=== PATIENT | male | born 1975 | race Caucasian/White ===

== ENCOUNTER 2019-12-28 14:20 | Emergency (ER) | payer BC ==
[2019-12-28] MEDS ORDERED: Dicyclomine 10 MG Cap PO ONE (14:35)
[2019-12-28] MEDS ORDERED: Sodium Chloride 0.9% 2.5 ML Syringe FLUSH PRN ×2 (14:35)
[2019-12-28] MEDS ORDERED: Ondansetron 4 MG/2 ML SDV IVPUSH ONE (14:35)
[2019-12-28] MEDS ORDERED: Famotidine 20 MG/2 ML SDV IVPUSH ONE (14:35)
[2019-12-28] MEDS ORDERED: Sodium Chloride 0.9% 1,000 ML IV ONE (14:35)
[2019-12-28] MEDS ORDERED: Sodium Chloride 0.9% 10 ML Syringe FLUSH PRN (14:35)
--- NOTE | 2019-12-28 14:41 | EDM.PDOC ---
ED HPI GENERAL MEDICAL PROBLEM - General Chief Complaint: Abdominal Pain Stated Complaint: GALLBLADDER ATTACK Time Seen by Provider: 12/28/19 14:33 - History of Present Illness INITIAL COMMENTS - FREE TEXT/NARRATIVE: History of present illness: [] Patient presents with 2 days of right upper quadrant abdominal pain that radiates to his back no nausea no vomiting no fever no chills no diarrhea no dysuria nothing seems to make it better or worse. Believes this might be his gallbladder. No prior surgeries no other medical problems no allergies. Review of systems: As per history of present illness and below otherwise all systems reviewed and negative. Past medical history: As per history of present illness and as reviewed below otherwise noncontributory. Surgical history: As per history of present illness and as reviewed below otherwise noncontributory. Social history: No reported history of drug or alcohol abuse. Family history: As per history of present illness and as reviewed below otherwise noncontributo ry. Physical exam: HEENT: Atraumatic, normocephalic, pupils reactive, negative for conjunctival pallor or scleral icterus, mucous membranes moist, throat clear, neck supple, nontender, trachea midline. Lungs: Clear to auscultation, breath sounds equal bilaterally, chest nontender. Heart: S1S2, regular, negative for clicks, rubs, or JVD. Abdomen: Soft, nondistended, mild tenderness in the right upper quadrant negative Novak sign. Negative for masses or hepatosplenomegaly. Negative for costovertebral tenderness. Pelvis: Stable nontender. Genitourinary: Deferred. Rectal: Deferred. Extremities: Atraumatic, negative for cords or calf pain. Neurovascular unremarkable. Neuro: Awake, alert, oriented. Cranial nerves II through XII unremarkable. Cerebellum unremarkable. Motor and sensory unremarkable throughout. Exam nonfocal. Diagnostics: [] Therapeutics: [] Impression: [] Plan: Medicate lab studies reevaluate [] Definitive disposition and diagnosis as appropriate pending reevaluation and review of above. URQ/right flank Pain Score (Numeric/FACES): 8 - Related Data Allergies Allergy/AdvReac Type Severity Reaction Status Date / Time No Known Allergies Allergy Verified 06/27/14 13:41 Home Meds: Home Meds Dicyclomine [Bentyl] 20 mg PO QIDACANDBED #30 tab 12/28/19 [Rx] Omeprazole Magnesium [Prilosec Otc] 20 mg PO ASDIRECTED 12/28/19 [History] Past Medical History HEENT History: Reports: None Cardiovascular History: Reports: None Respiratory History: Reports: None Gastrointestinal History: Reports: None Genitourinary History: Reports: None Musculoskeletal History: Reports: None Neurological History: Reports: None Psychiatric History: Reports: Anxiety, Depression, Panic Attack, PTSD Endocrine/Metabolic History: Reports: None Hematologic History: Reports: None Immunologic History: Reports: None Oncologic (Cancer) History: Reports: None Dermatologic History: Reports: None - Infectious Disease History Infectious Disease History: Reports: Chicken Pox Social & Family History - Family History Family Medical History: Noncontributory - Tobacco Use Smoking Status *Q: Former Smoker Used Tobacco, but Quit: Yes Month/Year Tobacco Last Used: 2016 - Recreational Drug Use Recreational Drug Use: No ED ROS GENERAL - Review of Systems Review Of Systems: See Below ED EXAM, GENERAL - Physical Exam Exam: See Below Course - Vital Signs Text/Narrative:: Patient's pain is better in the ED lab studies are unremarkable discharge home recommend follow-up with general surgery and Metamucil daily return to the ED for severe pain. Last Recorded V/S: Last Vital Signs Temp 35.9 C L 12/28/19 15:56 Pulse 82 12/28/19 15:56 Resp 18 12/28/19 15:56 BP 136/79 12/28/19 15:56 Pulse Ox 96 12/28/19 15:56 - Orders/Labs/Meds Orders: Active Orders 24 hr Category Date Time Status Saline Lock Insert [OM.PC] Stat Oth 12/28/19 14:35 Ordered Labs: Laboratory Tests 12/28/19 12/28/19 Range/Units 14:30 14:30 WBC 9.36 (4.0-11.0) K/uL RBC 4.97 (4.50-5.90) M/uL Hgb 16.6 (13.0-17.0) g/dL Hct 46.5 (38.0-50.0) % MCV 93.6 (80.0-98.0) fL MCH 33.4 H (27.0-32.0) pg MCHC 35.7 (31.0-37.0) g/dL RDW Std Deviation 45.4 (28.0-62.0) fl RDW Coeff of Yuval 13 (11.0-15.0) % Plt Count 241 (150-400) K/uL MPV 9.90 (7.40-12.00) fL Neut % (Auto) 56.4 (48.0-80.0) % Lymph % (Auto) 33.4 (16.0-40.0) % Moffat % (Auto) 6.2 (0.0-15.0) % Eos % (Auto) 3.5 (0.0-7.0) % Baso % (Auto) 0.5 (0.0-1.5) % Neut # (Auto) 5.3 (1.4-5.7) K/uL Lymph # (Auto) 3.1 H (0.6-2.4) K/uL Moffat # (Auto) 0.6 (0.0-0.8) K/uL Eos # (Auto) 0.3 (0.0-0.7) K/uL Baso # (Auto) 0.1 (0.0-0.1) K/uL Nucleated RBC % 0.0 /100WBC Nucleated RBCs # 0 K/uL Sodium 141 (136-148) mmol/L Potassium 3.8 (3.5-5.1) mmol/L Chloride 104 (98-107) mmol/L Carbon Dioxide 28.7 (21.0-32.0) mmol/L BUN 9 (7.0-18.0) mg/dL Creatinine 1.3 (0.8-1.3) mg/dL Est Cr Clr Drug Dosing 71.00 mL/min Estimated GFR (MDRD) 59.4 ml/min Glucose 107 H (74-106) mg/dL Calcium 9.2 (8.5-10.1) mg/dL Total Bilirubin 0.9 (0.2-1.0) mg/dL AST 29 (15-37) IU/L ALT 29 (14-63) IU/L Alkaline Phosphatase 79 (46-116) U/L Total Protein 7.2 (6.4-8.2) g/dL Albumin 4.3 (3.4-5.0) g/dL Globulin 2.9 (2.6-4.0) g/dL Albumin/Globulin Ratio 1.5 (0.9-1.6) Lipase 140 (73-393) U/L Meds: Medications Discontinued Medications Generic Name Dose Route Start Last Admin Trade Name Freq PRN Reason Stop Dose Admin Dicyclomine HCl 20 mg 12/28/19 14:35 12/28/19 14:59 Bentyl PO 12/28/19 14:36 20 mg ONETIME ONE Administration Famotidine 20 mg 12/28/19 14:35 12/28/19 14:59 Pepcid IVPUSH 12/28/19 14:36 20 mg ONETIME ONE Administration Sodium Chloride 1,000 mls @ 999 mls/hr 12/28/19 14:35 12/28/19 15:00 Normal Saline IV 12/28/19 15:35 999 mls/hr BOLUS ONE Administration Ondansetron HCl 4 mg 12/28/19 14:35 12/28/19 14:59 Zofran IVPUSH 12/28/19 14:36 4 mg ONETIME ONE Administration Sodium Chloride 2.5 ml 12/28/19 14:35 12/28/19 14:58 Saline Flush FLUSH 2.5 ml ASDIRECTED PRN Administration Keep Vein Open Sodium Chloride 10 ml 12/28/19 14:35 12/28/19 14:58 Saline Flush FLUSH 10 ml ASDIRECTED PRN Administration Keep Vein Open Sodium Chloride 2.5 ml 12/28/19 14:35 Saline Flush FLUSH ASDIRECTED PRN Keep Vein Open Departure - Departure Time of Disposition: 16:11 Disposition: Home, Self-Care 01 Condition: Good Clinical Impression: Abdominal pain Qualifiers: Abdominal location: upper abdomen, unspecified Qualified Code(s): R10.10 - Upper abdominal pain, unspecified - Discharge Information *PRESCRIPTION DRUG MONITORING PROGRAM REVIEWED*: Not Applicable *COPY OF PRESCRIPTION DRUG MONITORING REPORT IN PATIENT CAROLYN: Not Applicable Prescriptions: Dicyclomine [Bentyl] 20 mg PO QIDACANDBED #30 tab Referrals: Bentley Pena MD [Primary Care Provider] - Forms: ED Department Discharge Additional Instructions: The following information is given to patients seen in the emergency department who are being discharged to home. This information is to outline your options for follow-up care. We provide all patients seen in our emergency department with a follow-up referral. The need for follow-up, as well as the timing and circumstances, are variable depending upon the specifics of your emergency department visit. If you don't have a primary care physician on staff, we will provide you with a referral. We always advise you to contact your personal physician following an emergency department visit to inform them of the circumstance of the visit and for follow-up with them and/or the need for any referrals to a consulting specialist. The emergency department will also refer you to a specialist when appropriate. This referral assures that you have the opportunity for follow-up care with a specialist. All of these measure are taken in an effort to provide you with optimal care, which includes your follow-up. Under all circumstances we always encourage you to contact your private physician who remains a resource for coordinating your care. When calling for follow-up care, please make the office aware that this follow-up is from your recent emergency room visit. If for any reason you are refused follow-up, please contact the [facility] Emergency Department at and asked to speak to the emergency department charge nurse. Sepsis Event Note (ED) - Evaluation Sepsis Screening Result: No Definite Risk - Focused Exam Vital Signs: Vital Signs Temp Pulse Resp BP Pulse Ox 12/28/19 15:56 35.9 C L 82 18 136/79 96 12/28/19 14:26 35.8 C L 98 18 139/83 98 - My Orders Last 24 Hours: My Active Orders 12/28/19 14:35 Saline Lock Insert [OM.PC] Stat - Assessment/Plan Last 24 Hours: My Active Orders 12/28/19 14:35 Saline Lock Insert [OM.PC] Stat
[2019-12-28 15:05] LABS: CARBON DIOXIDE,CO2 28.7 mmol/L (21.0-32.0); POTASSIUM,K 3.8 mmol/L (3.5-5.1)
== END 2019-12-28 16:30 | disposition home or self-care (01) ==
LOC: MW.ED 14:20
DX: R10.11 Right upper quadrant pain (principal); Z87.891 Personal history of nicotine dependence
CPT/HCPCS: 36415; 80053; 83690; 85025; 96374; 96375; 99284; A9270; J2405; J7030; S0028; 99283; J3490

== ENCOUNTER 2020-01-10 06:28 | Day surgery (SDC) | payer BC ==
[~2020-01-10 06:28] MED LIST: Lactated Ringers 1,000 ML IV SCH
[2020-01-10] MEDS ORDERED: Midazolam 1 MG/ML 2 ML SDV ONE (07:00)
[2020-01-10] MEDS ORDERED: Propofol 200 MG/20 ML SDV ONE (07:00)
[2020-01-10] MEDS ORDERED: Lidocaine 2% 5 ML SDV ONE (07:02)
[2020-01-10] MEDS ORDERED: Glycopyrrolate 0.2 MG/ML SDV ONE (07:02)
--- NOTE | 2020-01-10 07:25 | PCM.PREANE ---
Preanesthetic Assessment - Anesthesia/Transfusion/Family Hx Anesthesia History: No Prior Anesthesia Family History of Anesthesia Reaction: No Transfusion History: No Prior Transfusion(s) Intubation History: Unknown - Review of Systems General: No Symptoms Pulmonary: No Symptoms Cardiovascular: No Symptoms Gastrointestinal: Abdominal Pain Neurological: No Symptoms Other: Reports: None - Physical Assessment NPO Status Date: 01/10/20 NPO Status Time: 06:00 Vital Signs: Last Vital Signs Temp 35.8 C L 01/10/20 06:40 Pulse 58 L 01/10/20 06:40 Resp 16 01/10/20 06:40 BP 131/76 01/10/20 06:40 Pulse Ox 96 01/10/20 06:40 Height: 5 ft 9 in Weight: 112.945 kg ASA Class: 2 Mental Status: Alert & Oriented x3 Airway Class: Mallampati = 2 Dentition: Reports: Normal Dentition Thyro-Mental Finger Breadths: 3 Mouth Opening Finger Breadths: 3 ROM/Head Extension: Full Lungs: Clear to Auscultation, Normal Respiratory Effort Cardiovascular: Regular Rate, Regular Rhythm - Allergies Allergies/Adverse Reactions: Allergies Allergy/AdvReac Type Severity Reaction Status Date / Time No Known Allergies Allergy Verified 01/05/20 09:02 - Blood Blood Available: No - Anesthesia Plan Pre-Op Medication Ordered: None - Acknowledgements Anesthesia Type Planned: MAC Pt an Appropriate Candidate for the Planned Anesthesia: Yes Alternatives and Risks of Anesthesia Discussed w Pt/Guardian: Yes Pt/Guardian Understands and Agrees with Anesthesia Plan: Yes PreAnesthesia Questionnaire HEENT History: Reports: None Cardiovascular History: Reports: None Respiratory History: Reports: None Other Respiratory History: allergy induced asthma as a teenager, uses CPAP Gastrointestinal History: Reports: GERD Other Gastrointestinal History: intermittent epigastric pain, h/o gastric ulcer, ultrasound 12/30 - fatty liver infiltration Genitourinary History: Reports: None Musculoskeletal History: Reports: Arthritis (elbows and shoulders) Other Musculoskeletal History: intermittent sciatic nerve pain Neurological History: Reports: None Psychiatric History: Reports: Anxiety, Depression, Panic Attack, PTSD Endocrine/Metabolic History: Reports: Obesity/BMI 30+ (BMI 36.8) Hematologic History: Reports: None Immunologic History: Reports: None Oncologic (Cancer) History: Reports: None Dermatologic History: Reports: None - Infectious Disease History Infectious Disease History: Reports: Chicken Pox - Past Surgical History Head Surgeries/Procedures: Reports: None HEENT Surgical History: Reports: None Cardiovascular Surgical History: Reports: None Respiratory Surgical History: Reports: None GI Surgical History: Reports: EGD (15-16 years ago in [facility]) Male Surgical History: Reports: None Endocrine Surgical History: Reports: None Neurological Surgical History: Reports: None Musculoskeletal Surgical History: Reports: None Oncologic Surgical History: Reports: None Dermatological Surgical History: Reports: None - SUBSTANCE USE Smoking Status *Q: Former Smoker (quit 3 years ago) Tobacco Use Within Last Twelve Months: No - HOME MEDS Home Medications: Home Meds Omeprazole Magnesium [Prilosec Otc] 20 mg PO ASDIRECTED PRN 12/28/19 [History] Diclofenac Potassium [Cataflam] 50 mg PO ASDIRECTED PRN 01/05/20 [History] Zyn 3 mg SL ASDIRECTED PRN 01/05/20 [History] - CURRENT (IN HOUSE) MEDS Current Meds: Current Medications Lactated Ringer's (Ringers, Lactated) 1,000 mls @ 125 mls/hr IV ASDIRECTED SHARMAINE Last Admin: 01/10/20 06:52 Dose: 125 mls/hr Documented by: Discontinued Medications Glycopyrrolate (Robinul) Confirm Administered Dose 0.2 mg .ROUTE .STK-MED ONE Stop: 01/10/20 07:03 Lidocaine (Xylocaine-Mpf 2%) Confirm Administered Dose 5 ml .ROUTE .STK-MED ONE Stop: 01/10/20 07:03 Midazolam HCl (Versed 1 Mg/Ml) Confirm Administered Dose 2 mg .ROUTE .STK-MED ONE Stop: 01/10/20 07:01 Propofol (Diprivan 20 Ml) Confirm Administered Dose 200 mg .ROUTE .STK-MED ONE Stop: 01/10/20 07:01
--- NOTE | 2020-01-10 08:40 | PCM.OPNOTE ---
- General Post-Op/Procedure Note Date of Surgery/Procedure: 01/10/20 Operative Procedure(s): EGD w/ gastric and esophageal biopsies Pre Op Diagnosis: Right upper quadrant and epigastric pain Post-Op Diagnosis: Acute and chronic gastritis. Esophagitis. Anesthesia Technique: MAC (ASA II) Primary Surgeon: Nathan Thompson Condition: Good Free Text/Narrative:: Intake & Output 01/09/20 01/10/20 01/10/20 19:59 03:59 11:59 Intake Total 900 Balance 900 DICTATION [id number] CPT CODE 22722
[2020-01-10] MEDS ORDERED: Lactated Ringers 1,000 ML IV SCH (08:45)
--- NOTE | 2020-01-10 09:34 | PCM.POSTAN ---
POST ANESTHESIA ASSESSMENT - MENTAL STATUS Mental Status: Alert, Oriented - VITAL SIGNS Vital Signs: Last Vital Signs Temp 35.8 C L 01/10/20 08:35 Pulse 52 L 01/10/20 09:15 Resp 14 01/10/20 09:15 BP 137/74 01/10/20 09:15 Pulse Ox 98 01/10/20 09:15 - RESPIRATORY Respiratory Status: Respiratory Rate WNL, Airway Patent, O2 Saturation Stable - CARDIOVASCULAR CV Status: Pulse Rate WNL, Blood Pressure Stable - GASTROINTESTINAL GI Status: No Symptoms - PAIN Pain Score: 0 - POST OP HYDRATION Hydration Status: Adequate & Stable - OBSERVATIONS Free Text/Narrative:: No anesthesia problems
--- NOTE | 2020-01-10 09:37 | PCM48HPAN ---
Post Anesthesia Note - EVALUATION WITHIN 48HRS OF ANESTHETIC Vital Signs in Normal Range: Yes Patient Participated in Evaluation: Yes Respiratory Function Stable: Yes Airway Patent: Yes Cardiovascular Function Stable: Yes Hydration Status Stable: Yes Pain Control Satisfactory: Yes Nausea and Vomiting Control Satisfactory: Yes Mental Status Recovered: Yes Vital Signs: Last Vital Signs Temp 35.8 C L 01/10/20 08:35 Pulse 52 L 01/10/20 09:15 Resp 14 01/10/20 09:15 BP 137/74 01/10/20 09:15 Pulse Ox 98 01/10/20 09:15 - COMMENTS/OBSERVATIONS Free Text/Narrative:: No anesthesia problems
--- NOTE | 2020-01-10 17:46 | OR ---
SURGEON: Nathan Thompson M.D. DATE OF PROCEDURE: 01/10/2020 OPERATION PERFORMED: Esophagogastroduodenoscopy with gastric and esophageal biopsy. PRIMARY SURGEON: Nathan Thompson MD ANESTHESIA: MAC. ASA CLASSIFICATION: II. PREOPERATIVE DIAGNOSIS: Persistent right upper quadrant and epigastric pain with acid reflux. POSTOPERATIVE DIAGNOSES: 1. Moderate acute and chronic gastritis. 2. Distal esophagitis. DESCRIPTION OF PROCEDURE: The patient was taken to the endoscopy room and positioned on the endoscopy table in the supine position. Time-out was called for appropriate identification of the patient and procedure. Monitored anesthesia care was provided. The bite block was placed between the patient's teeth. The gastroscope was inserted through the bite block into the oropharynx and advanced without difficulty through the esophagus and stomach into the duodenum. Examination was now carried out in a retrograde fashion. The duodenum showed no acute inflammatory changes or ulcerations. The stomach did show mild to moderate acute and chronic gastritis. Antral biopsies were obtained to look for the presence of Helicobacter pylori. The gastroscope was retroflexed to visualize the proximal stomach. No tumors, polyps, or ulcerations were noted. The gastroscope was then straightened and slowly withdrawn, carefully visualizing the greater and lesser curvatures. Again, no acute inflammatory processes are noted. The GE junction was well defined. The distal esophagus did show an acute inflammatory process and separate biopsies of this area were taken. There did not appear to be any significant columnarization in the distal esophagus. The mid and proximal esophagus demonstrated good contractility with no lesions. The vocal cords were not visualized as the scope was withdrawn. The gastroscope was then removed with the patient having tolerated the procedure well. He was taken to recovery room in stable condition. CC: Bentley Pena MD [facility] [address] [place] [id number] ANDE[place]ON / MODL /[id number]
== END 2020-01-10 09:40 | disposition home or self-care (01) ==
LOC: MW.SDS 06:28
PROVIDERS: ATTEND Surgery
DX: K29.50 Unspecified chronic gastritis without bleeding (principal); K29.00 Acute gastritis without bleeding; K21.9 Gastro-esophageal reflux disease without esophagitis; F41.9 Anxiety disorder, unspecified; F32.9 Major depressive disorder, single episode, unspecified; M19.90 Unspecified osteoarthritis, unspecified site; J45.909 Unspecified asthma, uncomplicated; E66.9 Obesity, unspecified; Z79.899 Other long term (current) drug therapy; Z87.891 Personal history of nicotine dependence; Z68.36 Body mass index [BMI] 36.0-36.9, adult
CPT/HCPCS: 00731; 88305; 88312; J2001; J2250; J2704; J3490; J7120

== ENCOUNTER 2020-08-22 17:09 | Emergency (ER) | payer BC ==
[2020-08-22] MEDS ORDERED: Sodium Chloride 0.9% 10 ML Syringe FLUSH PRN (17:21)
[2020-08-22] MEDS ORDERED: Sodium Chloride 0.9% 2.5 ML Syringe FLUSH PRN (17:21)
[2020-08-22] MEDS ORDERED: LORazepam 2 MG/ML SDV IVPUSH ONE (17:22)
--- NOTE | 2020-08-22 17:29 | EDM.PDOC ---
<Emery Holman - Last Filed: 08/22/20 18:49> ED HPI GENERAL MEDICAL PROBLEM - General Chief Complaint: Chest Pain Stated Complaint: HEART ISSUES Time Seen by Provider: 08/22/20 17:20 - History of Present Illness INITIAL COMMENTS - FREE TEXT/NARRATIVE: 45-year-old male with a history of panic attacks and PTSD is having trouble trouble with more frequent panic attacks in the months and years ago on. He has no history of hypertension no history of ACS no history of cardiac disease [facility] He has been keeping a log of these episodes and has been unable to find a clear trigger thus far. Patient was doing well today he reports that he was in a good mood did various activities including taking the dogs to the [place] and letting them run. He got home he was sitting watching TV and had sudden onset 6 out of 10 substernal chest pain associated with shortness of breath. This is similar to multiple past panic episodes. He says that he can normally breathe himself through it but was unable to do so at this time. 911 was called. No exacerbating or alleviating factors no radiation or other associated symptoms no lower extremity pain or swelling. Former smoker but not a current smoker. He states that typically after these episodes he feels very tired. chest Pain Score (Numeric/FACES): 4 - Related Data Allergies Allergy/AdvReac Type Severity Reaction Status Date / Time No Known Allergies Allergy Verified 08/22/20 17:10 Home Meds: Home Meds . [No Known Home Meds] 08/22/20 [History] Past Medical History - Past Health History Medical/Surgical History: Denies Medical/Surgical History HEENT History: Reports: None Cardiovascular History: Reports: None Respiratory History: Reports: Sleep Apnea Other Respiratory History: allergy induced asthma as a teenager, uses CPAP Gastrointestinal History: Reports: GERD Other Gastrointestinal History: intermittent epigastric pain, h/o gastric ulcer, ultrasound 12/30 - fatty liver infiltration Genitourinary History: Reports: None Musculoskeletal History: Reports: Arthritis Other Musculoskeletal History: intermittent sciatic nerve pain Neurological History: Reports: None Psychiatric History: Reports: Anxiety, Depression, Panic Attack, PTSD Endocrine/Metabolic History: Reports: Obesity/BMI 30+ Hematologic History: Reports: None Immunologic History: Reports: None Oncologic (Cancer) History: Reports: None Dermatologic History: Reports: None - Infectious Disease History Infectious Disease History: Reports: Chicken Pox - Past Surgical History Head Surgeries/Procedures: Reports: None HEENT Surgical History: Reports: None Cardiovascular Surgical History: Reports: None Respiratory Surgical History: Reports: None GI Surgical History: Reports: EGD Male Surgical History: Reports: None Endocrine Surgical History: Reports: None Neurological Surgical History: Reports: None Musculoskeletal Surgical History: Reports: None Oncologic Surgical History: Reports: None Dermatological Surgical History: Reports: None Social & Family History - Family History Family Medical History: No Pertinent Family History - Tobacco Use Tobacco Use Status *Q: Former Tobacco User Used Tobacco, but Quit: Yes Month/Year Tobacco Last Used: unknown - Recreational Drug Use Recreational Drug Use: No ED ROS GENERAL - Review of Systems Review Of Systems: See Below Free Text/Narrative/Comment: General: No fever. Skin: No rash. Eyes: No vision problems. ENT: No sore throat. Neck: No neck stiffness. Respiratory: Per HPI Cardiac: Per HPI Gastrointestinal: No nausea, vomiting or abdominal pain. Urinary: No dysuria. Musculoskeletal: No myalgias/arthralgias. Neurologic: No headache. ED EXAM, GENERAL - Physical Exam Exam: See Below Free Text/Narrative:: General Appearance: No acute distress, appears comfortable HEENT: Normocephalic/atraumatic, sclera anicteric, mucous membranes moist Neck: Normal range of motion Chest and Lungs: Bilateral breath sounds, clear to auscultation Cardiovascular: Regular rate and rhythm, no murmur Abdomen: Soft, non-tender Back: Normal Musculoskeletal: No edema or tenderness Neurologic: Awake, alert, no obvious deficits, moving all extremities Psychiatric: Anxious, cooperative #1 Interpretation EKG Date: 08/22/20 Time: 17:21 EKG Interpretation Comments: Normal sinus rhythm rate of 78 normal intervals and axis no acute ischemia minimal benign early repole pattern Departure - Departure Disposition: Home, Self-Care 01 Clinical Impression: Panic attack - Discharge Information Instructions: Panic Attack, [id number], Nonspecific Chest Pain, Adult, [id number] Referrals: Bentley Pena MD [Primary Care Provider] - Forms: ED Department Discharge Additional Instructions: You evaluate today on an emergent basis. At this time I do believe your symptoms were likely secondary to your PTSD, anxiety, and panic attacks. Your work-up was normal at this time. As discussed continue with your breathing exercises and I did recommend an jeovany called KeraFAST. Please follow-up with your [facility] physician for continued monitoring and treatment. If you have any new or worsening symptoms such as worsening chest pain, passing out, or shortness of breath please return to the emergency department. Thank you for your service. We appreciate you and all your fellow veterans. [facility] [address] [place] [id number] [facility] [address] [place] [id number] The patient is informed of any results of their evaluation and diagnostic workup and all questions are answered. They are given discharge instructions and return precautions. The patient is stable for discharge. The patient states they understand and agree with the plan and that they will return if their symptoms get worse or if they have any new concerns. The following information is given to patients seen in the emergency department who are being discharged to home. This information is to outline your options for follow-up care. We provide all patients seen in our emergency department with a follow-up referral. The need for follow-up, as well as the timing and circumstances, are variable depending upon the specifics of your emergency department visit. If you don't have a primary care physician on staff, we will provide you with a referral. We always advise you to contact your personal physician following an emergency department visit to inform them of the circumstance of the visit and for follow-up with them and/or the need for any referrals to a consulting specialist. The emergency department will also refer you to a specialist when appropriate. This referral assures that you have the opportunity for follow-up care with a specialist. All of these measure are taken in an effort to provide you with optimal care, which includes your follow-up. Under all circumstances we always encourage you to contact your private physician who remains a resource for coordinating your care. When calling for follow-up care, please make the office aware that this follow-up is from your recent emergency room visit. If for any reason you are refused follow-up, please contact the Emergency Department at and asked to speak to the emergency department charge nurse. Sepsis Event Note (ED) - Evaluation Sepsis Screening Result: No Definite Risk - Assessment/Plan Assessment:: 45-year-old male with nonischemic EKG presenting with signs and symptoms that are most consistent with panic episode but other etiologies considered as well. Heart score will be calculated anticipate patient to be low risk. No tachycardia or hypoxia or pleuritic component that would suggest PE. Aortic dissection considered the patient without history of hypertension the pain is not tearing make it is unlikely to be aortic dissection given the overall clinical picture. Would not further pursue unless abnormal mediastinal silhouette. Was planning to give the patient 1 mg of Ativan after extensive discussion. However patient now seems to be entering a more fatigued and sleepy state which is reportedly typical after these episodes. He arouses easily to voice. 1840: Patient symptoms are starting to run a typical course he now has a mild left chest ache. He states this is typical of these episodes. His initial blood work is normal his chest x-ray read is still pending. We discussed that if he is still symptomatic at the 2-hour lolly we could consider delta troponin. However his heart score is low. We discussed the potential for urine metanephrine testing for pheochromocytoma which could be pursued as an outpatient by his primary care provider. I think on balance panic attack is much more likely and we discussed this. Repeat trop is due at 0730 <Efren Cedillo - Last Filed: 08/23/20 06:26> ED HPI GENERAL MEDICAL PROBLEM - History of Present Illness INITIAL COMMENTS - FREE TEXT/NARRATIVE: Patient was signed out to me by Dr. Holman pending reevaluation at 7PM I did reevaluate the patient and patient stated that his symptoms had completely resolved. Labs reviewed CBC was normal. CMP unremarkable. Troponin is negative. Imaging reviewed chest x-ray did not reveal any acute cardiopulmonary process. Given the patient's symptoms had completely resolved. I do believe this is secondary to his anxiety and panic attack. I did offer a repeat troponin however at this time he does believe it secondary to his anxiety, PTSD and prior history of panic attacks. I encouraged the patient to follow-up with his [facility] physician for continued management of his PTSD and anxiety. He was amenable discharge at this time and had no further questions. He is to return for any new or worsening symptoms DISPOSITION: The patient was discharged home in stable condition. The patient will follow up with [place] physician within 2 to 3 days CONDITION: Fair PROCEDURES: None FINAL IMPRESSION(S)/DIAGNOSES: 1. Acute panic attack Efren Cedillo M.D. Course - Vital Signs Last Recorded V/S: Last Vital Signs Temp 36.8 C 08/22/20 20:05 Pulse 66 08/22/20 20:05 Resp 18 08/22/20 20:05 BP 110/60 08/22/20 20:05 Pulse Ox 97 08/22/20 20:05 - Orders/Labs/Meds Orders: Active Orders 24 hr Category Date Time Status Saline Lock Insert [OM.PC] Stat Oth 08/22/20 17:21 Ordered Labs: Laboratory Tests 08/22/20 08/22/20 Range/Units 17:23 17:23 WBC 9.69 (4.0-11.0) K/uL RBC 5.00 (4.50-5.90) M/uL Hgb 16.7 (13.0-17.0) g/dL Hct 47.4 (38.0-50.0) % MCV 94.8 (80.0-98.0) fL MCH 33.4 H (27.0-32.0) pg MCHC 35.2 (31.0-37.0) g/dL RDW Std Deviation 45.6 (28.0-62.0) fl RDW Coeff of Yuval 13 (11.0-15.0) % Plt Count 235 (150-400) K/uL MPV 10.00 (7.40-12.00) fL Neut % (Auto) 58.5 (48.0-80.0) % Lymph % (Auto) 32.4 (16.0-40.0) % [place] % (Auto) 7.1 (0.0-15.0) % Eos % (Auto) 1.7 (0.0-7.0) % Baso % (Auto) 0.3 (0.0-1.5) % Neut # (Auto) 5.7 (1.4-5.7) K/uL Lymph # (Auto) 3.1 H (0.6-2.4) K/uL [place] # (Auto) 0.7 (0.0-0.8) K/uL Eos # (Auto) 0.2 (0.0-0.7) K/uL Baso # (Auto) 0.0 (0.0-0.1) K/uL Nucleated RBC % 0.0 /100WBC Nucleated RBCs # 0 K/uL Sodium 139 (136-148) mmol/L Potassium 3.7 (3.5-5.1) mmol/L Chloride 104 (98-107) mmol/L Carbon Dioxide 26.6 (21.0-32.0) mmol/L BUN 11 (7.0-18.0) mg/dL Creatinine 1.2 (0.8-1.3) mg/dL Est Cr Clr Drug Dosing 71.15 mL/min Estimated GFR (MDRD) > 60.0 ml/min Glucose 117 H (74-106) mg/dL Calcium 9.1 (8.5-10.1) mg/dL Total Bilirubin 0.7 (0.2-1.0) mg/dL AST 18 (15-37) IU/L ALT 20 (14-63) IU/L Alkaline Phosphatase 76 (46-116) U/L Troponin I < 0.050 (0.000-0.056) ng/mL Total Protein 7.1 (6.4-8.2) g/dL Albumin 4.0 (3.4-5.0) g/dL Globulin 3.1 (2.6-4.0) g/dL Albumin/Globulin Ratio 1.3 (0.9-1.6) Meds: Medications Discontinued Medications Generic Name Dose Route Start Last Admin Trade Name Freq PRN Reason Stop Dose Admin Lorazepam 1 mg 08/22/20 17:22 08/22/20 17:36 Ativan IVPUSH 08/22/20 17:23 1 mg ONETIME ONE Administration Sodium Chloride 10 ml 08/22/20 17:21 08/22/20 17:37 Saline Flush FLUSH 10 ml ASDIRECTED PRN Administration Keep Vein Open Sodium Chloride 2.5 ml 08/22/20 17:21 08/22/20 17:37 Saline Flush FLUSH 2.5 ml ASDIRECTED PRN Administration Keep Vein Open Departure - Departure Time of Disposition: 19:53 Condition: Fair - Discharge Information *PRESCRIPTION DRUG MONITORING PROGRAM REVIEWED*: No *COPY OF PRESCRIPTION DRUG MONITORING REPORT IN PATIENT CAROLYN: No Sepsis Event Note (ED) - Focused Exam Vital Signs: Vital Signs Temp Pulse Resp BP Pulse Ox 08/22/20 20:05 36.8 C 66 18 110/60 97 08/22/20 19:10 68 18 115/68 97
[2020-08-22 18:12] LABS: BLOOD UREA NITROGEN,BUN 11 mg/dL (7.0-18.0); CARBON DIOXIDE,CO2 26.6 mmol/L (21.0-32.0); CHLORIDE,CL 104 mmol/L (98-107); GLUCOSE RANDOM 117 mg/dL (74-106); POTASSIUM,K 3.7 mmol/L (3.5-5.1); SODIUM,NA 139 mmol/L (136-148)
--- NOTE | 2020-08-22 18:48 | CR ---
INDICATION: Chest pain. TECHNIQUE: AP chest. COMPARISON: None. FINDINGS: Heart size is upper limits of normal. This may be accentuated by the AP technique. Pulmonary vasculature is unremarkable. Low lung volumes. Minor bibasilar atelectasis. No appreciable pleural fluid or pneumothorax. IMPRESSION: No radiographic evidence of acute cardiopulmonary disease. Dictated by Toni Chacon MD @ 08/22/2020 6:47:14 PM Dictated by: Toni Chacon MD @ 08/22/2020 18:47:23 (Electronically Signed)
== END 2020-08-22 20:05 | disposition home or self-care (01) ==
LOC: MW.ED 17:09
DX: F41.0 Panic disorder [episodic paroxysmal anxiety] (principal); E66.9 Obesity, unspecified; Z68.37 Body mass index [BMI] 37.0-37.9, adult
CPT/HCPCS: 36415; 71045; 80053; 84484; 85025; 93005; 96374; 99284; J2060; 93010; 99283

== ENCOUNTER 2020-10-09 13:50 | Observation (INO) | payer OTHER, BC ==
[2020-10-09] MEDS ORDERED: Sodium Chloride 0.9% 1,000 ML IV ONE (14:14)
--- NOTE | 2020-10-09 14:23 | EDM.PDOC ---
ED HPI GENERAL MEDICAL PROBLEM - General Chief Complaint: Chest Pain Stated Complaint: CHEST PAIN Time Seen by Provider: 10/09/20 13:56 Source of Information: Reports: Patient, Family History Limitations: Reports: No Limitations - History of Present Illness INITIAL COMMENTS - FREE TEXT/NARRATIVE: HISTORY AND PHYSICAL: History of present illness: Patient is a 45-year-old male who presents to the ED today with his significant other for concern of lightheadedness, syncopal episode, and chest pain that started approximately 1 hour before coming to the emergency room. Patient s ignificant other states that he was on his way driving back from work and he got out of the vehicle and had a syncopal episode. Patient states that this time he feels "fuzzy "and tired. Patient states he is also having chest pain which started during the syncope episode that radiates into his back. Patient's significant other states that he has had syncopal episodes and states that he had one on Friday and went to the emergency room in [place]. Patient significant other states that at this time, he had an evaluation and was sent home. Patient states in the past, several years ago, he has worn a Holter monitor as he has had issues with palpitations in the past and was told that he had intermittent bouts of SVT and PVCs. Patient significant other states that he also has a history of PTSD and panic attacks related to being in the , sleep apnea, and fatty liver. Patient denies fever, chills, shortness of breath, or cough. Denies headache, neck stiff ness, change in vision. Denies nausea, vomiting, abdominal pain, diarrhea, constipation, or dysuria. Has not noted any blood in urine or stool. Patient has been eating and drinking appropriately. Review of systems: As per history of present illness and below otherwise all systems reviewed and negative. Past medical history: As per history of present illness and as reviewed below otherwise noncontributory. Surgical history: As per history of present illness and as reviewed below otherwise noncontributory. Social history: See social history for further information Family history: As per history of present illness and as reviewed below otherwise noncontributory. Physical exam: General: Patient is alert, oriented, and in no acute distress. Patient laying comfortably on exam table, tired appearing, lips appear pale. Vitals stable and reviewed by me. HEENT: Atraumatic, normocephalic, pupils equal and reactive bilaterally, negative for conjunctival pallor or scleral icterus, mucous membranes moist, TMs normal bilaterally, throat clear, neck supple, nontender, trachea midline. No drooling or trismus noted. No meningeal signs. No hot potato voice noted. Lungs: Clear to auscultation, breath sounds equal bilaterally, chest nontender. Heart: S1S2, regular rate and rhythm without overt murmur Abdomen: Soft, nondistended, nontender. Negative for masses or hepatosplenomegaly. Negative for costovertebral tenderness. Pelvis: Stable nontender. Genitourinary: Deferred. Rectal: Deferred. Skin: Intact, warm, dry. No lesions or rashes noted. Extremities: Atraumatic, negative for cords or calf pain. Neurovascular unremarkable. Neuro: Awake, alert, oriented. Cranial nerves II through XII unremarkable. Cerebellum unremarkable. Motor and sensory unremarkable throughout. Exam nonfocal. Notes: Upon arrival to the ED, patient is tired appearing and does appear somewhat pale. Vitally stable. Patient is alert and oriented and answering questions appropriately. Will perform cardiac evaluation, including aorta protocol CT to for possible aortic dissection. CBC and CMP for mild hypomagnesia at 1.7 otherwise are unremarkable. Initial troponin is negative. Head CT shows unremarkable noncontrast head CT. Aorta protocol CT shows no evidence of aortic dissection. No acute process demonstrated in the chest abdomen or pelvis. Upon reevaluation of patient, he remains vitally stable throughout stay in ED. Upon reevaluation, he does appear clinically improved and no longer is pale- appearing or tired appearing. Dr. Al, hospitalist, consulted on patient and thoroughly discussed patient's case. Will admit to observation telemetry. Voices understanding and is agreeable to plan of care. Denies any further questions or concerns at this time. Diagnostics: EKG, CBC, CMP, UA, UDS, Salicylate, Acetaminophen, TSH, Mg, Trop, lipase, ethanol, Chest CT w cont, orthostatic vitals, COVID19 Therapeutics: NS, ASA Impression: Chest pain r/o ACS Syncope Hypomagnesia, mild Plan: Admit to observation on telemetry to Dr. Al Definitive disposition and diagnosis as appropriate pending reevaluation and review of above. Chest Pain Score (Numeric/FACES): 8 - Related Data Allergies Allergy/AdvReac Type Severity Reaction Status Date / Time No Known Allergies Allergy Verified 10/09/20 18:56 Home Meds: Home Meds Aspirin 1 dose PO DAILY 10/09/20 [History] Propranolol [Inderal] 10 mg PO BID PRN 10/09/20 [History] buPROPion [Wellbutrin] 150 mg PO BEDTIME 10/09/20 [History] Past Medical History - Past Health History Medical/Surgical History: Denies Medical/Surgical History HEENT History: Reports: None Cardiovascular History: Reports: None Respiratory History: Reports: Sleep Apnea Other Respiratory History: allergy induced asthma as a teenager, uses CPAP Gastrointestinal History: Reports: GERD Other Gastrointestinal History: intermittent epigastric pain, h/o gastric ulcer, ultrasound 12/30 - fatty liver infiltration Genitourinary History: Reports: None Musculoskeletal History: Reports: Arthritis Other Musculoskeletal History: intermittent sciatic nerve pain Neurological History: Reports: None Psychiatric History: Reports: Anxiety, Depression, Panic Attack, PTSD Endocrine/Metabolic History: Reports: Obesity/BMI 30+ Hematologic History: Reports: None Immunologic History: Reports: None Oncologic (Cancer) History: Reports: None Dermatologic History: Reports: None - Infectious Disease History Infectious Disease History: Reports: Chicken Pox - Past Surgical History Head Surgeries/Procedures: Reports: None HEENT Surgical History: Reports: None Cardiovascular Surgical History: Reports: None Respiratory Surgical History: Reports: None GI Surgical History: Reports: EGD Male Surgical History: Reports: None Endocrine Surgical History: Reports: None Neurological Surgical History: Reports: None Musculoskeletal Surgical History: Reports: None Oncologic Surgical History: Reports: None Dermatological Surgical History: Reports: None Social & Family History - Family History Family Medical History: No Pertinent Family History - Tobacco Use Tobacco Use Status *Q: Former Tobacco User Used Tobacco, but Quit: Yes Month/Year Tobacco Last Used: 06/2017 - Caffeine Use Caffeine Use: Reports: None - Recreational Drug Use Recreational Drug Use: No ED ROS GENERAL - Review of Systems Review Of Systems: Comprehensive ROS is negative, except as noted in HPI. ED EXAM, GENERAL - Physical Exam Exam: See Below (see dictation) Course - Vital Signs Last Recorded V/S: Last Vital Signs Temp 98 F 10/09/20 18:54 Pulse 65 10/09/20 18:54 Resp 16 10/09/20 18:54 BP 118/74 10/09/20 18:54 Pulse Ox 96 10/09/20 18:54 - Orders/Labs/Meds Orders: Active Orders 24 hr Category Date Time Status Cardiac Monitoring [RC] . DIRECTED Care 10/09/20 14:14 Active EKG Documentation Completion [RC] STAT Care 10/09/20 14:14 Active Orthostatic Vital Signs [RC] ASDIRECTED Care 10/09/20 14:16 Active Labs: Laboratory Tests 10/09/20 10/09/20 10/09/20 Range/Units 12:35 14:04 14:04 WBC 9.69 (4.0-11.0) K/uL RBC 5.08 (4.50-5.90) M/uL Hgb 16.9 (13.0-17.0) g/dL Hct 46.9 (38.0-50.0) % MCV 92.3 (80.0-98.0) fL MCH 33.3 H (27.0-32.0) pg MCHC 36.0 (31.0-37.0) g/dL RDW Std Deviation 42.4 (28.0-62.0) fl RDW Coeff of Yuval 13 (11.0-15.0) % Plt Count 219 (150-400) K/uL MPV 10.30 (7.40-12.00) fL Neut % (Auto) 59.8 (48.0-80.0) % Lymph % (Auto) 28.7 (16.0-40.0) % [place] % (Auto) 7.6 (0.0-15.0) % Eos % (Auto) 3.5 (0.0-7.0) % Baso % (Auto) 0.4 (0.0-1.5) % Neut # (Auto) 5.8 H (1.4-5.7) K/uL Lymph # (Auto) 2.8 H (0.6-2.4) K/uL [place] # (Auto) 0.7 (0.0-0.8) K/uL Eos # (Auto) 0.3 (0.0-0.7) K/uL Baso # (Auto) 0.0 (0.0-0.1) K/uL Nucleated RBC % 0.0 /100WBC Nucleated RBCs # 0 K/uL Sodium 139 (136-148) mmol/L Potassium 4.0 (3.5-5.1) mmol/L Chloride 105 (98-107) mmol/L Carbon Dioxide 24.7 (21.0-32.0) mmol/L BUN 18 (7.0-18.0) mg/dL Creatinine 1.2 (0.8-1.3) mg/dL Est Cr Clr Drug Dosing 76.10 mL/min Estimated GFR (MDRD) > 60.0 ml/min Glucose 87 (74-106) mg/dL Calcium 9.0 (8.5-10.1) mg/dL Magnesium 1.7 L (1.8-2.4) mg/dL Total Bilirubin 0.8 (0.2-1.0) mg/dL AST 23 (15-37) IU/L ALT 21 (14-63) IU/L Alkaline Phosphatase 82 (46-116) U/L Troponin I < 0.050 (0.000-0.056) ng/mL Total Protein 7.1 (6.4-8.2) g/dL Albumin 3.9 (3.4-5.0) g/dL Globulin 3.2 (2.6-4.0) g/dL Albumin/Globulin Ratio 1.2 (0.9-1.6) Lipase 130 (73-393) U/L TSH 3rd Generation 1.22 (0.36-3.74) uIU/mL Urine Color Urine Appearance Urine pH (5.0-8.0) Ur Specific [place] (1.001-1.035) Urine Protein (NEGATIVE) mg/dL Urine Glucose (UA) (NEGATIVE) mg/dL Urine Ketones (NEGATIVE) mg/dL Urine Occult Blood (NEGATIVE) Urine Nitrite (NEGATIVE) Urine Bilirubin (NEGATIVE) Urine Urobilinogen (<2.0) EU/dL Ur Leukocyte Esterase (NEGATIVE) Salicylates 1.1 (0-20) mg/dL Urine Opiates Screen (NEGATIVE) Ur Oxycodone Screen (NEGATIVE) Urine Methadone Screen (NEGATIVE) Acetaminophen <2.0 ug/mL Ur Barbiturates Screen (NEGATIVE) Ur Phencyclidine Scrn (NEGATIVE) Ur Amphetamine Screen (NEGATIVE) U Methamphetamines Scrn (NEGATIVE) U Benzodiazepines Scrn (NEGATIVE) U Cocaine Metab Screen (NEGATIVE) U Marijuana (THC) Screen (NEGATIVE) Ethyl Alcohol < 3.0 mg/dL Influenza Type A RNA NEGATIVE (NEGATIVE) Influenza Type B RNA NEGATIVE (NEGATIVE) SARS-CoV-2 RNA (ESTRELLA) NEGATIVE (NEGATIVE) 10/09/20 10/09/20 Range/Units 16:08 16:08 WBC (4.0-11.0) K/uL RBC (4.50-5.90) M/uL Hgb (13.0-17.0) g/dL Hct (38.0-50.0) % MCV (80.0-98.0) fL MCH (27.0-32.0) pg MCHC (31.0-37.0) g/dL RDW Std Deviation (28.0-62.0) fl RDW Coeff of Yuval (11.0-15.0) % Plt Count (150-400) K/uL MPV (7.40-12.00) fL Neut % (Auto) (48.0-80.0) % Lymph % (Auto) (16.0-40.0) % [place] % (Auto) (0.0-15.0) % Eos % (Auto) (0.0-7.0) % Baso % (Auto) (0.0-1.5) % Neut # (Auto) (1.4-5.7) K/uL Lymph # (Auto) (0.6-2.4) K/uL [place] # (Auto) (0.0-0.8) K/uL Eos # (Auto) (0.0-0.7) K/uL Baso # (Auto) (0.0-0.1) K/uL Nucleated RBC % /100WBC Nucleated RBCs # K/uL Sodium (136-148) mmol/L Potassium (3.5-5.1) mmol/L Chloride (98-107) mmol/L Carbon Dioxide (21.0-32.0) mmol/L BUN (7.0-18.0) mg/dL Creatinine (0.8-1.3) mg/dL Est Cr Clr Drug Dosing mL/min Estimated GFR (MDRD) ml/min Glucose (74-106) mg/dL Calcium (8.5-10.1) mg/dL Magnesium (1.8-2.4) mg/dL Total Bilirubin (0.2-1.0) mg/dL AST (15-37) IU/L ALT (14-63) IU/L Alkaline Phosphatase (46-116) U/L Troponin I (0.000-0.056) ng/mL Total Protein (6.4-8.2) g/dL Albumin (3.4-5.0) g/dL Globulin (2.6-4.0) g/dL Albumin/Globulin Ratio (0.9-1.6) Lipase (73-393) U/L TSH 3rd Generation (0.36-3.74) uIU/mL Urine Color YELLOW Urine Appearance CLEAR Urine pH 5.5 (5.0-8.0) Ur Specific [place] 1.015 (1.001-1.035) Urine Protein NEGATIVE (NEGATIVE) mg/dL Urine Glucose (UA) NEGATIVE (NEGATIVE) mg/dL Urine Ketones NEGATIVE (NEGATIVE) mg/dL Urine Occult Blood NEGATIVE (NEGATIVE) Urine Nitrite NEGATIVE (NEGATIVE) Urine Bilirubin NEGATIVE (NEGATIVE) Urine Urobilinogen 0.2 (<2.0) EU/dL Ur Leukocyte Esterase NEGATIVE (NEGATIVE) Salicylates (0-20) mg/dL Urine Opiates Screen NEGATIVE (NEGATIVE) Ur Oxycodone Screen NEGATIVE (NEGATIVE) Urine Methadone Screen NEGATIVE (NEGATIVE) Acetaminophen ug/mL Ur Barbiturates Screen NEGATIVE (NEGATIVE) Ur Phencyclidine Scrn NEGATIVE (NEGATIVE) Ur Amphetamine Screen NEGATIVE (NEGATIVE) U Methamphetamines Scrn NEGATIVE (NEGATIVE) U Benzodiazepines Scrn NEGATIVE (NEGATIVE) U Cocaine Metab Screen NEGATIVE (NEGATIVE) U Marijuana (THC) Screen NEGATIVE (NEGATIVE) Ethyl Alcohol mg/dL Influenza Type A RNA (NEGATIVE) Influenza Type B RNA (NEGATIVE) SARS-CoV-2 RNA (ESTRELLA) (NEGATIVE) Meds: Medications Discontinued Medications Generic Name Dose Route Start Last Admin Trade Name Freq PRN Reason Stop Dose Admin Aspirin 324 mg 10/09/20 17:22 10/09/20 17:38 Aspirin 81 Mg Tab.Chew PO 10/09/20 17:23 324 mg ONETIME ONE Administration Sodium Chloride 1,000 mls @ 999 mls/hr 10/09/20 14:14 10/09/20 14:30 Normal Saline IV 10/09/20 15:14 999 mls/hr BOLUS ONE Administration Magnesium Sulfate 4 gm/ Premix 100 mls @ 25 mls/hr 10/09/20 14:56 10/09/20 15:35 IV 10/09/20 18:55 25 mls/hr ONETIME ONE Administration Iopamidol 100 ml 10/09/20 15:33 10/09/20 15:36 Iopamidol 755 Mg/Ml 500 Ml Multipack Bottle IVPUSH 10/09/20 15:34 100 ml ONETIME STA Administration Departure - Departure Time of Disposition: 17:28 Disposition: Refer to Observation Clinical Impression: Chest pain Qualifiers: Chest pain type: unspecified Qualified Code(s): R07.9 - Chest pain, unspecified Syncope Qualifiers: Syncope type: unspecified Qualified Code(s): R55 - Syncope and collapse - Discharge Information Sepsis Event Note (ED) - Evaluation Sepsis Screening Result: No Definite Risk - Focused Exam Vital Signs: Vital Signs Temp Pulse Resp BP Pulse Ox 10/09/20 16:55 66 18 117/66 98 10/09/20 14:03 99 F 66 20 146/96 H 96 - My Orders Last 24 Hours: My Active Orders 10/09/20 14:14 Cardiac Monitoring [RC] . DIRECTED EKG Documentation Completion [RC] STAT 10/09/20 14:16 Orthostatic Vital Signs [RC] ASDIRECTED - Assessment/Plan Last 24 Hours: My Active Orders 10/09/20 14:14 Cardiac Monitoring [RC] . DIRECTED EKG Documentation Completion [RC] STAT 10/09/20 14:16 Orthostatic Vital Signs [RC] ASDIRECTED
[2020-10-09 14:49] LABS: ACETAMINOPHEN <2.0 ug/mL; BLOOD UREA NITROGEN,BUN 18 mg/dL (7.0-18.0); CARBON DIOXIDE,CO2 24.7 mmol/L (21.0-32.0); CHLORIDE,CL 105 mmol/L (98-107); GLUCOSE RANDOM 87 mg/dL (74-106); LIPASE 130 U/L (73-393); SODIUM,NA 139 mmol/L (136-148)
[2020-10-09] MEDS ORDERED: Magnesium Sulfate/Water 4 GM in Premix Bag 1 BAG IV ONE (14:56)
[2020-10-09] MEDS ORDERED: Iopamidol 755 MG/ML 500 ML Multipack Bottle IVPUSH STA (15:33)
--- NOTE | 2020-10-09 15:38 | CT ---
INDICATION: Syncope TECHNIQUE: CT head without contrast. COMPARISON: None FINDINGS: CSF spaces: Within normal limits for age. Brain parenchyma: The riley-white differentiation is normal. No sign of mass, hemorrhage, or midline shift. Skull base and calvarium: The visualized paranasal sinuses and mastoid air cells demonstrate no acute or significant findings. The visualized orbits are grossly unremarkable. No skull fractures. IMPRESSION: Unremarkable noncontrast head CT. Please note that all CT scans at this facility use dose modulation, iterative reconstruction, and/or weight-based dosing when appropriate to reduce radiation dose to as low as reasonably achievable. Dictated by Natan Ramriez MD @ Oct 09 2020 3:36PM Signed by Dr. Natan Ramirez @ Oct 09 2020 3:37PM
--- NOTE | 2020-10-09 16:27 | CT ---
Indication: Syncope Technique: Nonenhanced axial CT imaging through the chest, followed by contrast enhanced imaging through the chest, abdomen, and pelvis acquired in the angiographic phase of enhancement. 100 mL Isovue 370 contrast agent was administered. Sagittal and coronal reconstructions are provided. Comparison: None Findings: Aorta: There is normal caliber of the visualized thoracic aorta. The aortic arch is incompletely included on the post-contrast images. There is suboptimal contrast enhancement of the thoracic aorta. Additionally, motion artifact is noted at the aortic root. Within these limitations, there is no evidence of aortic dissection. The abdominal aorta is adequately opacified and demonstrates normal caliber. The celiac axis, superior mesenteric artery, renal arteries, and inferior mesenteric artery are patent and demonstrate no significant stenosis. Chest: The heart is normal in size. There is no pericardial effusion. There is no mediastinal lymphadenopathy. The lungs are clear. There is no pleural effusion or pneumothorax. Abdomen/pelvis: There is no significant abnormality relating to the liver, gallbladder, spleen, pancreas, adrenal glands, or kidneys. The stomach and small bowel are unremarkable. There is no colonic wall thickening or mesenteric edema. There is no abdominal lymphadenopathy. The anterior abdominal wall is incompletely included. The pelvis is also incompletely included. No significant osseous abnormalities demonstrated. Impression: No evidence of aortic dissection. No acute process demonstrated in the chest, abdomen, or pelvis. Please note that all CT scans at this facility use dose modulation, iterative reconstruction, and/or weight-based dosing when appropriate to reduce radiation dose to as low as reasonably achievable. Dictated by Christian Watson MD @ Oct 09 2020 4:11PM Signed by Dr. Christian Watson @ Oct 09 2020 4:25PM
[2020-10-09] MEDS ORDERED: Aspirin 81 MG Tab.Chew PO ONE (17:22)
[2020-10-09 18:19] LABS: CORONAVIRUS COVID-19 NAA NEGATIVE (NEGATIVE); INFLUENZA A NAA NEGATIVE (NEGATIVE); INFLUENZA B NAA NEGATIVE (NEGATIVE)
[2020-10-09] MEDS ORDERED: Propranolol 20 MG Tab PO PRN (22:00)
[2020-10-09] MEDS ORDERED: buPROPion 100 MG Tab PO SCH (22:30)
--- NOTE | 2020-10-09 22:50 | PCM.HP.2 ---
H&P History of Present Illness - General Date of Service: 10/09/20 Admit Problem/Dx: Admission Diagnosis/Problem Admission Diagnosis/Problem Chest pain - History of Present Illness Initial Comments - Free Text/Narative: 45 yo male with pmh of SVT, and panic attacks who presents to the ED after passing out. PAtient reports at around noon he developed palpitations, sharp substernal chest pain with associated symptoms of shortness of breath and palpitations. 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 When he was out of the truck he laid himself down and did pass out briefly. In the ED he has angiography of the chest and abdomen which did not show any acute pathology. Patient denies any feelings of anxiety. He has been having symptoms of palpiation every day for the past 20 years. He reported a recent Zio patch study that was cut short as it feel off. The [facility] wanted to do an echocardiogram but one hasn't been schedualed yet. He had an MRI last Friday at the [facility] in [place]. PAtient reported not doing well in the inclosed MRI space and reported passing out and then waking up in the ER. Patient was discharged from the [facility]. Chest Pain Score (Numeric/FACES): 8 - Related Data Allergies/Adverse Reactions: Allergies Allergy/AdvReac Type Severity Reaction Status Date / Time No Known Allergies Allergy Verified 10/09/20 18:56 Home Medications: Home Meds Aspirin 1 dose PO DAILY 10/09/20 [History] Propranolol [Inderal] 10 mg PO BID PRN 10/09/20 [History] buPROPion [Wellbutrin] 150 mg PO BEDTIME 10/09/20 [History] Past Medical History - Past Health History Medical/Surgical History: Denies Medical/Surgical History HEENT History: Reports: None Cardiovascular History: Reports: None Respiratory History: Reports: Sleep Apnea Other Respiratory History: allergy induced asthma as a teenager, uses CPAP Gastrointestinal History: Reports: GERD Other Gastrointestinal History: intermittent epigastric pain, h/o gastric ulcer, ultrasound 12/30 - fatty liver infiltration Genitourinary History: Reports: None Musculoskeletal History: Reports: Arthritis Other Musculoskeletal History: intermittent sciatic nerve pain Neurological History: Reports: None Psychiatric History: Reports: Anxiety, Depression, Panic Attack, PTSD Endocrine/Metabolic History: Reports: Obesity/BMI 30+ Hematologic History: Reports: None Immunologic History: Reports: None Oncologic (Cancer) History: Reports: None Dermatologic History: Reports: None - Infectious Disease History Infectious Disease History: Reports: Chicken Pox - Past Surgical History Head Surgeries/Procedures: Reports: None HEENT Surgical History: Reports: None Cardiovascular Surgical History: Reports: None Respiratory Surgical History: Reports: None GI Surgical History: Reports: EGD Male Surgical History: Reports: None Endocrine Surgical History: Reports: None Neurological Surgical History: Reports: None Musculoskeletal Surgical History: Reports: None Oncologic Surgical History: Reports: None Dermatological Surgical History: Reports: None Social & Family History - Family History Family Medical History: No Pertinent Family History - Tobacco Use Tobacco Use Status *Q: Former Tobacco User Years of Tobacco use: 20 Used Tobacco, but Quit: Yes Month/Year Tobacco Last Used: 2017 - Caffeine Use Caffeine Use: Reports: Coffee - Recreational Drug Use Recreational Drug Use: No H&P Review of Systems - Review of Systems: Review Of Systems: Comprehensive ROS is negative, except as noted in HPI. Exam - Exam Exam: See Below - Vital Signs Vital Signs: Last Vital Signs Temp 36.6 C 10/09/20 18:54 Pulse 65 10/09/20 18:54 Resp 16 10/09/20 18:54 BP 118/74 10/09/20 18:54 Pulse Ox 96 10/09/20 18:54 Orthostatic Blood Pressure [ 131/77 Standing] Orthostatic Blood Pressure [ 128/72 Sitting] Orthostatic Blood Pressure [ 128/76 Supine] Weight: 106.866 kg - Exam General: Alert, Oriented HEENT: Mucosa Moist & [place] Lungs: Clear to Auscultation, Normal Respiratory Effort Cardiovascular: Regular Rate, Regular Rhythm GI/Abdominal Exam: Normal Bowel Sounds, Soft, Non-Tender Extremities: Non-Tender, No Pedal Edema Skin: Warm, Dry, Intact - Patient Data Lab Results Last 24 hrs: Laboratory Results - last 24 hr 10/09/20 10/09/20 10/09/20 Range/Units 12:35 14:04 14:04 WBC 9.69 (4.0-11.0) K/uL RBC 5.08 (4.50-5.90) M/uL Hgb 16.9 (13.0-17.0) g/dL Hct 46.9 (38.0-50.0) % MCV 92.3 (80.0-98.0) fL MCH 33.3 H (27.0-32.0) pg MCHC 36.0 (31.0-37.0) g/dL RDW Std Deviation 42.4 (28.0-62.0) fl RDW Coeff of Yuval 13 (11.0-15.0) % Plt Count 219 (150-400) K/uL MPV 10.30 (7.40-12.00) fL Neut % (Auto) 59.8 (48.0-80.0) % Lymph % (Auto) 28.7 (16.0-40.0) % [place] % (Auto) 7.6 (0.0-15.0) % Eos % (Auto) 3.5 (0.0-7.0) % Baso % (Auto) 0.4 (0.0-1.5) % Neut # (Auto) 5.8 H (1.4-5.7) K/uL Lymph # (Auto) 2.8 H (0.6-2.4) K/uL [place] # (Auto) 0.7 (0.0-0.8) K/uL Eos # (Auto) 0.3 (0.0-0.7) K/uL Baso # (Auto) 0.0 (0.0-0.1) K/uL Nucleated RBC % 0.0 /100WBC Nucleated RBCs # 0 K/uL Sodium 139 (136-148) mmol/L Potassium 4.0 (3.5-5.1) mmol/L Chloride 105 (98-107) mmol/L Carbon Dioxide 24.7 (21.0-32.0) mmol/L BUN 18 (7.0-18.0) mg/dL Creatinine 1.2 (0.8-1.3) mg/dL Est Cr Clr Drug Dosing 76.10 mL/min Estimated GFR (MDRD) > 60.0 ml/min Glucose 87 (74-106) mg/dL Calcium 9.0 (8.5-10.1) mg/dL Magnesium 1.7 L (1.8-2.4) mg/dL Total Bilirubin 0.8 (0.2-1.0) mg/dL AST 23 (15-37) IU/L ALT 21 (14-63) IU/L Alkaline Phosphatase 82 (46-116) U/L Troponin I < 0.050 (0.000-0.056) ng/mL Total Protein 7.1 (6.4-8.2) g/dL Albumin 3.9 (3.4-5.0) g/dL Globulin 3.2 (2.6-4.0) g/dL Albumin/Globulin Ratio 1.2 (0.9-1.6) Lipase 130 (73-393) U/L TSH 3rd Generation 1.22 (0.36-3.74) uIU/mL Urine Color Urine Appearance Urine pH (5.0-8.0) Ur Specific [place] (1.001-1.035) Urine Protein (NEGATIVE) mg/dL Urine Glucose (UA) (NEGATIVE) mg/dL Urine Ketones (NEGATIVE) mg/dL Urine Occult Blood (NEGATIVE) Urine Nitrite (NEGATIVE) Urine Bilirubin (NEGATIVE) Urine Urobilinogen (<2.0) EU/dL Ur Leukocyte Esterase (NEGATIVE) Salicylates 1.1 (0-20) mg/dL Urine Opiates Screen (NEGATIVE) Ur Oxycodone Screen (NEGATIVE) Urine Methadone Screen (NEGATIVE) Acetaminophen <2.0 ug/mL Ur Barbiturates Screen (NEGATIVE) Ur Phencyclidine Scrn (NEGATIVE) Ur Amphetamine Screen (NEGATIVE) U Methamphetamines Scrn (NEGATIVE) U Benzodiazepines Scrn (NEGATIVE) U Cocaine Metab Screen (NEGATIVE) U Marijuana (THC) Screen (NEGATIVE) Ethyl Alcohol < 3.0 mg/dL Influenza Type A RNA NEGATIVE (NEGATIVE) Influenza Type B RNA NEGATIVE (NEGATIVE) SARS-CoV-2 RNA (ESTRELLA) NEGATIVE (NEGATIVE) 10/09/20 10/09/20 10/09/20 Range/Units 16:08 16:08 20:35 WBC (4.0-11.0) K/uL RBC (4.50-5.90) M/uL Hgb (13.0-17.0) g/dL Hct (38.0-50.0) % MCV (80.0-98.0) fL MCH (27.0-32.0) pg MCHC (31.0-37.0) g/dL RDW Std Deviation (28.0-62.0) fl RDW Coeff of Yuval (11.0-15.0) % Plt Count (150-400) K/uL MPV (7.40-12.00) fL Neut % (Auto) (48.0-80.0) % Lymph % (Auto) (16.0-40.0) % [place] % (Auto) (0.0-15.0) % Eos % (Auto) (0.0-7.0) % Baso % (Auto) (0.0-1.5) % Neut # (Auto) (1.4-5.7) K/uL Lymph # (Auto) (0.6-2.4) K/uL [place] # (Auto) (0.0-0.8) K/uL Eos # (Auto) (0.0-0.7) K/uL Baso # (Auto) (0.0-0.1) K/uL Nucleated RBC % /100WBC Nucleated RBCs # K/uL Sodium (136-148) mmol/L Potassium (3.5-5.1) mmol/L Chloride (98-107) mmol/L Carbon Dioxide (21.0-32.0) mmol/L BUN (7.0-18.0) mg/dL Creatinine (0.8-1.3) mg/dL Est Cr Clr Drug Dosing mL/min Estimated GFR (MDRD) ml/min Glucose (74-106) mg/dL Calcium (8.5-10.1) mg/dL Magnesium (1.8-2.4) mg/dL Total Bilirubin (0.2-1.0) mg/dL AST (15-37) IU/L ALT (14-63) IU/L Alkaline Phosphatase (46-116) U/L Troponin I < 0.050 (0.000-0.056) ng/mL Total Protein (6.4-8.2) g/dL Albumin (3.4-5.0) g/dL Globulin (2.6-4.0) g/dL Albumin/Globulin Ratio (0.9-1.6) Lipase (73-393) U/L TSH 3rd Generation (0.36-3.74) uIU/mL Urine Color YELLOW Urine Appearance CLEAR Urine pH 5.5 (5.0-8.0) Ur Specific [place] 1.015 (1.001-1.035) Urine Protein NEGATIVE (NEGATIVE) mg/dL Urine Glucose (UA) NEGATIVE (NEGATIVE) mg/dL Urine Ketones NEGATIVE (NEGATIVE) mg/dL Urine Occult Blood NEGATIVE (NEGATIVE) Urine Nitrite NEGATIVE (NEGATIVE) Urine Bilirubin NEGATIVE (NEGATIVE) Urine Urobilinogen 0.2 (<2.0) EU/dL Ur Leukocyte Esterase NEGATIVE (NEGATIVE) Salicylates (0-20) mg/dL Urine Opiates Screen NEGATIVE (NEGATIVE) Ur Oxycodone Screen NEGATIVE (NEGATIVE) Urine Methadone Screen NEGATIVE (NEGATIVE) Acetaminophen ug/mL Ur Barbiturates Screen NEGATIVE (NEGATIVE) Ur Phencyclidine Scrn NEGATIVE (NEGATIVE) Ur Amphetamine Screen NEGATIVE (NEGATIVE) U Methamphetamines Scrn NEGATIVE (NEGATIVE) U Benzodiazepines Scrn NEGATIVE (NEGATIVE) U Cocaine Metab Screen NEGATIVE (NEGATIVE) U Marijuana (THC) Screen NEGATIVE (NEGATIVE) Ethyl Alcohol mg/dL Influenza Type A RNA (NEGATIVE) Influenza Type B RNA (NEGATIVE) SARS-CoV-2 RNA (ESTRELLA) (NEGATIVE) Result Diagrams: 10/09/20 14:04 10/09/20 14:04 Sepsis Event Note - Evaluation Sepsis Screening Result: No Definite Risk - Focused Exam Vital Signs: Vital Signs Temp Pulse Resp BP Pulse Ox 10/09/20 18:54 36.6 C 65 16 118/74 96 10/09/20 18:05 66 18 132/68 97 10/09/20 16:55 66 18 117/66 98 10/09/20 14:03 37.2 C 66 20 146/96 H 96 Problem List Initiated/Reviewed/Updated: Yes Orders Last 24hrs: Active Orders 24 hr Category Date Time Status Admission Status [Patient Status] [ADT] Stat ADT 10/09/20 17:09 Active Cardiac Monitoring [RC] . DIRECTED Care 10/09/20 14:14 Active EKG Documentation Completion [RC] STAT Care 10/09/20 14:14 Active Orthostatic Vital Signs [RC] ASDIRECTED Care 10/09/20 14:16 Active Telemetry Monitoring [Cardiac Monitoring] [RC] Q8H Care 10/09/20 17:45 Active Regular Diet [DIET] Diet 10/10/20 Breakfast Active TROPONIN I [CHEM] Q6H Lab 10/10/20 02:00 Ordered Propranolol [Inderal] Med 10/09/20 22:00 Active 10 mg PO BID PRN buPROPion [Wellbutrin] Med 10/09/20 22:30 Active 150 mg PO BEDTIME Medication Orders Bupropion HCl (Bupropion 100 Mg Tab) 150 mg PO BEDTIME SHARMAINE Propranolol HCl (Propranolol 20 Mg Tab) 10 mg PO BID PRN PRN Reason: Arrhythmia Assessment/Plan Comment:: 45 yo male admitted following syncope. We will monitor overnight on telemetry. Echocardiogram has been ordered. If he rules out for ACS will likely discharge in the morning with Zio patch.
--- NOTE | 2020-10-10 11:55 | PCM.DCSUM1 ---
Discharge Summary - Discharge Data Discharge Date: 10/10/20 Discharge Disposition: Home, Self-Care 01 Condition: Stable - Referral to Home Health Primary Care Physician: Bentley Pena MD - Patient Summary/Data Hospital Course: 45 yo male with pmh of COPD and panic attacks who was admitted following a syncopal event with associated symptoms of shortness of breath and chest pain. Initial work of including CBC, CMP, troponin, EKG, CT head and CTA abdomen/chest were unremarkable. Patient was monitored overnight on telemetry without events. He had serial negative troponin. Echocardiogram was obtained this morning and report is pending. Patient did develop a rash following his last Zio patch but when offered to repeat study he would like to try again knowing rash may reoccur. He believes the rash may have been caused by aggressive cleaning rather than the adhesive. We will see if we can use another adhesive. Patient is to be discharged home to have follow up with the [facility]. - Discharge Plan Home Medications: Home Meds Aspirin 1 dose PO DAILY 10/09/20 [History] Propranolol [Inderal] 10 mg PO BID PRN 10/09/20 [History] buPROPion [Wellbutrin] 150 mg PO BEDTIME 10/09/20 [History] Forms: ED Department Discharge Referrals: Bentley Pena MD [Primary Care Provider] - 10/20/20 10:15 am - Discharge Summary/Plan Comment DC Time >30 min.: No - Patient Data Vitals - Most Recent: Last Vital Signs Temp 36.7 C 10/10/20 07:19 Pulse 64 10/10/20 07:19 Resp 13 10/10/20 07:19 BP 112/64 10/10/20 07:19 Pulse Ox 98 10/10/20 07:19 Orthostatic Blood Pressure [ 112/67 Standing] Orthostatic Blood Pressure [ 115/72 Sitting] Orthostatic Blood Pressure [ 108/64 Supine] Weight - Most Recent: 106.866 kg I&O - Last 24 hours: Intake & Output 10/09/20 10/10/20 10/10/20 22:59 06:59 14:59 Intake Total 390 Output Total 0 Balance 390 Lab Results - Last 24 hrs: Laboratory Results - last 24 hr 10/09/20 10/09/20 10/09/20 Range/Units 12:35 14:04 14:04 WBC 9.69 (4.0-11.0) K/uL RBC 5.08 (4.50-5.90) M/uL Hgb 16.9 (13.0-17.0) g/dL Hct 46.9 (38.0-50.0) % MCV 92.3 (80.0-98.0) fL MCH 33.3 H (27.0-32.0) pg MCHC 36.0 (31.0-37.0) g/dL RDW Std Deviation 42.4 (28.0-62.0) fl RDW Coeff of Yuval 13 (11.0-15.0) % Plt Count 219 (150-400) K/uL MPV 10.30 (7.40-12.00) fL Neut % (Auto) 59.8 (48.0-80.0) % Lymph % (Auto) 28.7 (16.0-40.0) % [place] % (Auto) 7.6 (0.0-15.0) % Eos % (Auto) 3.5 (0.0-7.0) % Baso % (Auto) 0.4 (0.0-1.5) % Neut # (Auto) 5.8 H (1.4-5.7) K/uL Lymph # (Auto) 2.8 H (0.6-2.4) K/uL [place] # (Auto) 0.7 (0.0-0.8) K/uL Eos # (Auto) 0.3 (0.0-0.7) K/uL Baso # (Auto) 0.0 (0.0-0.1) K/uL Nucleated RBC % 0.0 /100WBC Nucleated RBCs # 0 K/uL Sodium 139 (136-148) mmol/L Potassium 4.0 (3.5-5.1) mmol/L Chloride 105 (98-107) mmol/L Carbon Dioxide 24.7 (21.0-32.0) mmol/L BUN 18 (7.0-18.0) mg/dL Creatinine 1.2 (0.8-1.3) mg/dL Est Cr Clr Drug Dosing 76.10 mL/min Estimated GFR (MDRD) > 60.0 ml/min Glucose 87 (74-106) mg/dL Calcium 9.0 (8.5-10.1) mg/dL Magnesium 1.7 L (1.8-2.4) mg/dL Total Bilirubin 0.8 (0.2-1.0) mg/dL AST 23 (15-37) IU/L ALT 21 (14-63) IU/L Alkaline Phosphatase 82 (46-116) U/L Troponin I < 0.050 (0.000-0.056) ng/mL Total Protein 7.1 (6.4-8.2) g/dL Albumin 3.9 (3.4-5.0) g/dL Globulin 3.2 (2.6-4.0) g/dL Albumin/Globulin Ratio 1.2 (0.9-1.6) Lipase 130 (73-393) U/L TSH 3rd Generation 1.22 (0.36-3.74) uIU/mL Urine Color Urine Appearance Urine pH (5.0-8.0) Ur Specific [place] (1.001-1.035) Urine Protein (NEGATIVE) mg/dL Urine Glucose (UA) (NEGATIVE) mg/dL Urine Ketones (NEGATIVE) mg/dL Urine Occult Blood (NEGATIVE) Urine Nitrite (NEGATIVE) Urine Bilirubin (NEGATIVE) Urine Urobilinogen (<2.0) EU/dL Ur Leukocyte Esterase (NEGATIVE) Salicylates 1.1 (0-20) mg/dL Urine Opiates Screen (NEGATIVE) Ur Oxycodone Screen (NEGATIVE) Urine Methadone Screen (NEGATIVE) Acetaminophen <2.0 ug/mL Ur Barbiturates Screen (NEGATIVE) Ur Phencyclidine Scrn (NEGATIVE) Ur Amphetamine Screen (NEGATIVE) U Methamphetamines Scrn (NEGATIVE) U Benzodiazepines Scrn (NEGATIVE) U Cocaine Metab Screen (NEGATIVE) U Marijuana (THC) Screen (NEGATIVE) Ethyl Alcohol < 3.0 mg/dL Influenza Type A RNA NEGATIVE (NEGATIVE) Influenza Type B RNA NEGATIVE (NEGATIVE) SARS-CoV-2 RNA (ESTRELLA) NEGATIVE (NEGATIVE) 10/09/20 10/09/20 10/09/20 Range/Units 16:08 16:08 20:35 WBC (4.0-11.0) K/uL RBC (4.50-5.90) M/uL Hgb (13.0-17.0) g/dL Hct (38.0-50.0) % MCV (80.0-98.0) fL MCH (27.0-32.0) pg MCHC (31.0-37.0) g/dL RDW Std Deviation (28.0-62.0) fl RDW Coeff of Yuval (11.0-15.0) % Plt Count (150-400) K/uL MPV (7.40-12.00) fL Neut % (Auto) (48.0-80.0) % Lymph % (Auto) (16.0-40.0) % [place] % (Auto) (0.0-15.0) % Eos % (Auto) (0.0-7.0) % Baso % (Auto) (0.0-1.5) % Neut # (Auto) (1.4-5.7) K/uL Lymph # (Auto) (0.6-2.4) K/uL [place] # (Auto) (0.0-0.8) K/uL Eos # (Auto) (0.0-0.7) K/uL Baso # (Auto) (0.0-0.1) K/uL Nucleated RBC % /100WBC Nucleated RBCs # K/uL Sodium (136-148) mmol/L Potassium (3.5-5.1) mmol/L Chloride (98-107) mmol/L Carbon Dioxide (21.0-32.0) mmol/L BUN (7.0-18.0) mg/dL Creatinine (0.8-1.3) mg/dL Est Cr Clr Drug Dosing mL/min Estimated GFR (MDRD) ml/min Glucose (74-106) mg/dL Calcium (8.5-10.1) mg/dL Magnesium (1.8-2.4) mg/dL Total Bilirubin (0.2-1.0) mg/dL AST (15-37) IU/L ALT (14-63) IU/L Alkaline Phosphatase (46-116) U/L Troponin I < 0.050 (0.000-0.056) ng/mL Total Protein (6.4-8.2) g/dL Albumin (3.4-5.0) g/dL Globulin (2.6-4.0) g/dL Albumin/Globulin Ratio (0.9-1.6) Lipase (73-393) U/L TSH 3rd Generation (0.36-3.74) uIU/mL Urine Color YELLOW Urine Appearance CLEAR Urine pH 5.5 (5.0-8.0) Ur Specific [place] 1.015 (1.001-1.035) Urine Protein NEGATIVE (NEGATIVE) mg/dL Urine Glucose (UA) NEGATIVE (NEGATIVE) mg/dL Urine Ketones NEGATIVE (NEGATIVE) mg/dL Urine Occult Blood NEGATIVE (NEGATIVE) Urine Nitrite NEGATIVE (NEGATIVE) Urine Bilirubin NEGATIVE (NEGATIVE) Urine Urobilinogen 0.2 (<2.0) EU/dL Ur Leukocyte Esterase NEGATIVE (NEGATIVE) Salicylates (0-20) mg/dL Urine Opiates Screen NEGATIVE (NEGATIVE) Ur Oxycodone Screen NEGATIVE (NEGATIVE) Urine Methadone Screen NEGATIVE (NEGATIVE) Acetaminophen ug/mL Ur Barbiturates Screen NEGATIVE (NEGATIVE) Ur Phencyclidine Scrn NEGATIVE (NEGATIVE) Ur Amphetamine Screen NEGATIVE (NEGATIVE) U Methamphetamines Scrn NEGATIVE (NEGATIVE) U Benzodiazepines Scrn NEGATIVE (NEGATIVE) U Cocaine Metab Screen NEGATIVE (NEGATIVE) U Marijuana (THC) Screen NEGATIVE (NEGATIVE) Ethyl Alcohol mg/dL Influenza Type A RNA (NEGATIVE) Influenza Type B RNA (NEGATIVE) SARS-CoV-2 RNA (ESTRELLA) (NEGATIVE) 10/10/20 Range/Units 02:05 WBC (4.0-11.0) K/uL RBC (4.50-5.90) M/uL Hgb (13.0-17.0) g/dL Hct (38.0-50.0) % MCV (80.0-98.0) fL MCH (27.0-32.0) pg MCHC (31.0-37.0) g/dL RDW Std Deviation (28.0-62.0) fl RDW Coeff of Yuval (11.0-15.0) % Plt Count (150-400) K/uL MPV (7.40-12.00) fL Neut % (Auto) (48.0-80.0) % Lymph % (Auto) (16.0-40.0) % [place] % (Auto) (0.0-15.0) % Eos % (Auto) (0.0-7.0) % Baso % (Auto) (0.0-1.5) % Neut # (Auto) (1.4-5.7) K/uL Lymph # (Auto) (0.6-2.4) K/uL [place] # (Auto) (0.0-0.8) K/uL Eos # (Auto) (0.0-0.7) K/uL Baso # (Auto) (0.0-0.1) K/uL Nucleated RBC % /100WBC Nucleated RBCs # K/uL Sodium (136-148) mmol/L Potassium (3.5-5.1) mmol/L Chloride (98-107) mmol/L Carbon Dioxide (21.0-32.0) mmol/L BUN (7.0-18.0) mg/dL Creatinine (0.8-1.3) mg/dL Est Cr Clr Drug Dosing mL/min Estimated GFR (MDRD) ml/min Glucose (74-106) mg/dL Calcium (8.5-10.1) mg/dL Magnesium (1.8-2.4) mg/dL Total Bilirubin (0.2-1.0) mg/dL AST (15-37) IU/L ALT (14-63) IU/L Alkaline Phosphatase (46-116) U/L Troponin I < 0.050 (0.000-0.056) ng/mL Total Protein (6.4-8.2) g/dL Albumin (3.4-5.0) g/dL Globulin (2.6-4.0) g/dL Albumin/Globulin Ratio (0.9-1.6) Lipase (73-393) U/L TSH 3rd Generation (0.36-3.74) uIU/mL Urine Color Urine Appearance Urine pH (5.0-8.0) Ur Specific [place] (1.001-1.035) Urine Protein (NEGATIVE) mg/dL Urine Glucose (UA) (NEGATIVE) mg/dL Urine Ketones (NEGATIVE) mg/dL Urine Occult Blood (NEGATIVE) Urine Nitrite (NEGATIVE) Urine Bilirubin (NEGATIVE) Urine Urobilinogen (<2.0) EU/dL Ur Leukocyte Esterase (NEGATIVE) Salicylates (0-20) mg/dL Urine Opiates Screen (NEGATIVE) Ur Oxycodone Screen (NEGATIVE) Urine Methadone Screen (NEGATIVE) Acetaminophen ug/mL Ur Barbiturates Screen (NEGATIVE) Ur Phencyclidine Scrn (NEGATIVE) Ur Amphetamine Screen (NEGATIVE) U Methamphetamines Scrn (NEGATIVE) U Benzodiazepines Scrn (NEGATIVE) U Cocaine Metab Screen (NEGATIVE) U Marijuana (THC) Screen (NEGATIVE) Ethyl Alcohol mg/dL Influenza Type A RNA (NEGATIVE) Influenza Type B RNA (NEGATIVE) SARS-CoV-2 RNA (ESTRELLA) (NEGATIVE) Med Orders - Current: Current Medications Bupropion HCl (Bupropion 100 Mg Tab) 150 mg PO BEDTIME SHARMAINE Last Admin: 10/09/20 22:51 Dose: 150 mg Documented by: Propranolol HCl (Propranolol 20 Mg Tab) 10 mg PO BID PRN PRN Reason: Arrhythmia Last Admin: 10/09/20 22:51 Dose: 10 mg Documented by: Discontinued Medications Aspirin (Aspirin 81 Mg Tab.Chew) 324 mg PO ONETIME ONE Stop: 10/09/20 17:23 Last Admin: 10/09/20 17:38 Dose: 324 mg Documented by: Sodium Chloride (Normal Saline) 1,000 mls @ 999 mls/hr IV BOLUS ONE Stop: 10/09/20 15:14 Last Admin: 10/09/20 14:30 Dose: 999 mls/hr Documented by: Magnesium Sulfate 4 gm/ Premix 100 mls @ 25 mls/hr IV ONETIME ONE Stop: 10/09/20 18:55 Last Admin: 10/09/20 15:35 Dose: 25 mls/hr Documented by: Iopamidol (Iopamidol 755 Mg/Ml 500 Ml Multipack Bottle) 100 ml IVPUSH ONETIME STA Stop: 10/09/20 15:34 Last Admin: 10/09/20 15:36 Dose: 100 ml Documented by:
--- NOTE | 2020-10-12 15:35 | ECHO ---
EXAM DATE: 10/09/20 PATIENT'S AGE: 45 The ECHO report has been scanned into [facility] and can be seen in this patient's EMR (Electronic Medical Record) under the REPORTS section. The report has also been scanned into PACS. DEBORAH
== END 2020-10-10 14:50 | disposition home or self-care (01) ==
LOC: MW.ED 13:50 → MW.MS 17:08
PROVIDERS: ADMIT Internal Medicine; ATTEND Internal Medicine
DX: R55 Syncope and collapse (principal); R07.9 Chest pain, unspecified; F41.0 Panic disorder [episodic paroxysmal anxiety]; K21.9 Gastro-esophageal reflux disease without esophagitis; E66.9 Obesity, unspecified; Z79.82 Long term (current) use of aspirin; Z79.899 Other long term (current) drug therapy; Z20.822 Contact with and (suspected) exposure to COVID-19; Z68.35 Body mass index [BMI] 35.0-35.9, adult
CPT/HCPCS: 0240U; 36415; 70450; 71275; 74175; 80053; 80143; 80179; 80305; 80307; 81003; 83690; 83735; 84443; 84484; 85025; 93005; 93306; 96365; 99285; A9270; J3475; J7030; Q9967; 93010; 99283; G0378

== ENCOUNTER 2020-10-17 18:21 | Emergency (ER) | payer OTHER, BC ==
--- NOTE | 2020-10-17 18:28 | PCM.EKG ---
#1 Interpretation EKG Date: 10/17/20 Time: 18:23 Rhythm: NSR Rate (Beats/Min): 81 ST-T: Normal
[2020-10-17] MEDS ORDERED: Sodium Chloride 0.9% 2.5 ML Syringe FLUSH PRN (18:35)
[2020-10-17] MEDS ORDERED: Sodium Chloride 0.9% 10 ML Syringe FLUSH PRN (18:35)
[2020-10-17] MEDS ORDERED: Sodium Chloride 0.9% 1,000 ML IV ONE (18:40)
[2020-10-17 19:12] LABS: BLOOD UREA NITROGEN,BUN 21 mg/dL (7.0-18.0); CARBON DIOXIDE,CO2 25.3 mmol/L (21.0-32.0); CHLORIDE,CL 105 mmol/L (98-107); GLUCOSE RANDOM 141 mg/dL (74-106); LIPASE 106 U/L (73-393); POTASSIUM,K 3.8 mmol/L (3.5-5.1); SODIUM,NA 140 mmol/L (136-148)
--- NOTE | 2020-10-17 19:55 | CR ---
HISTORY: Chest pain. COMPARISON: CT of the chest from 10/09/2020 and portable chest radiograph from 08/22/2020 FINDINGS: A portable semi-erect AP lordotic view of the chest was obtained at 2121 hours. The lungs remain clear. No focal or diffuse infiltrates are present. An electronic device is superimposed over the left apex. The heart remains normal in size. The mediastinum is normal in appearance. The osseous structures are normal in appearance for the patient`s age. IMPRESSION: Normal portable chest single view. Dictated by Kenny Le MD @ 10/17/2020 7:53:[address] Kenny Le @ Oct 17 2020 7:53PM
[2020-10-17] MEDS ORDERED: Magnesium Chloride 64 MG Tab.ER PO STA (20:05)
--- NOTE | 2020-10-17 20:34 | EDM.PDOC ---
ED HPI GENERAL MEDICAL PROBLEM - General Chief Complaint: Chest Pain Stated Complaint: PALPATATION Time Seen by Provider: 10/17/20 18:23 Source of Information: Reports: Patient History Limitations: Reports: No Limitations - History of Present Illness INITIAL COMMENTS - FREE TEXT/NARRATIVE: HISTORY AND PHYSICAL: History of present illness: Patient is a 45-year-old male who presents emergency room today via EMS with concern of palpitations, flushing, anxiety, causing him to feel syncopal. Patient states he has not lost consciousness but has had multiple of these episodes since his last hospital / ED stay here. Patient was given full dose of aspirin by EMS in route to the emergency room. Patient states that since his last hospital stay, he followed up with his primary care provider, Dr. Quevedo. Patient states he is currently wearing a Holter monitor for these palpitations and is on a second Holter monitor as the other one caused him to have a rash. Patient states he also goes to the [facility] but has not scheduled for several weeks to follow-up with them so has been following with Dr. Pena instead. Patient states that he has had multiple episodes of the palpitations, flushing, anxiety making him feel syncopal but denies syncope or head injury. States his symptoms today are the same as when he was in the ED on 10/09/20 and was admitted at that time. States he called EMS when the episode felt longer and "his heart was pounding out of his chest". Patient's states that she periodically checks his vitals during these episodes and notes that he is more hypertensive when usually his blood pressure is normal. Patient denies any other symptoms or concerns. Patient denies fever, chills, chest pain, shortness of breath, or cough. Denies headache, neck stiff ness, change in vision. Denies nausea, vomiting, abdominal pain, diarrhea, constipation, or dysuria. Has not noted any blood in urine or stool. Patient has been eating and drinking appropriately. Review of systems: As per history of present illness and below otherwise all systems reviewed and negative. Past medical history: As per history of present illness and as reviewed below otherwise no ncontributory. Surgical history: As per history of present illness and as reviewed below otherwise noncontributory. Social history: See social history for further information Family history: As per history of present illness and as reviewed below otherwise noncontributory. Physical exam: General: Patient is alert, oriented, and in no acute distress, flushed appearing. Patient laying comfortably on exam table. Vitals stable and reviewed by me. HEENT: Atraumatic, normocephalic, pupils equal and reactive bilaterally, negative for conjunctival pallor or scleral icterus, mucous membranes moist, TMs normal bilaterally, throat clear, neck supple, nontender, trachea midline. No drooling or trismus noted. No meningeal signs. No hot potato voice noted. Lungs: Clear to auscultation, breath sounds equal bilaterally, chest nontender. Heart: S1S2, regular rate and rhythm without overt murmur Abdomen: Soft, nondistended, nontender. Negative for masses or hepatosplenomegaly. Negative for costovertebral tenderness. Pelvis: Stable nontender. Genitourinary: Deferred. Rectal: Deferred. Skin: Intact, warm, dry. No lesions or rashes noted. Extremities: Atraumatic, negative for cords or calf pain. Neurovascular unremarkable. Neuro: Awake, alert, oriented. Cranial nerves II through XII unremarkable. Cerebellum unremarkable. Motor and sensory unremarkable throughout. Exam nonfocal. Notes: Upon arrival to the ED, patient does appear flushed, mildly hypertensive 144/90s otherwise vitally stable, and non toxic appearing. I have personally seen and evaluated patient in the ED recently with similar appearance as to my prior evaluation on 10/09/20. During my prior evaluation, patient expressed his symptoms as syncopal episodes and was admitted to the hospital and discharged home with repeat negative troponin, unremarkable ECHO and follow up with is PCP. Patient states that since his hospital visit, he has had multiple episodes of the same symptoms that he is now better able to express his symptoms which he describes more as "pounding in his chest, anxiety, flushing / sweaty" which makes him "lightheaded" and feel syncopal. Patient states that he followed up with his primary care provider, Dr. Quevedo, who was able to establish a repeat Holter monitor for the palpitations as patient was unable to complete the first Holter monitor due to rash breakout. Patient currently wearing Zio Patch holter monitor today in the ED. Patient's at bedside notes that patient is mildly hypertensive at home during these episodes in which otherwise his blood pressure is usually normal. Patient presents to the ED today via EMS secondary to re-occurrence of an episode of "pounding in his chest, palpitations, anxiety, flushing and sweaty" causing him to feel syncopal and denies any change in these episode symptoms from prior evaluation. Will obtain cardiac evaluation today as well plan to obtain testing to assess for possible pheochromocytoma. See Dr. Phoenix's dictation for specific EKG interpretation. Otherwise, No STEMI and normal sinus rhythm. Mild derangements of lab work today unremarkable. Magnesium is mildly low at 1.7. Will give p.o. magnesium at this time. Chest x-ray shows no acute cardiopulmonary findings. Troponin negative. Upon reevaluation of patient, he is clinically improved and no longer flushed. BP now 120s/80s without intervention. Given that patient has had multiple episodes like this, with prior unremarkable hospital stay for prior episode, given negative evaluation today, feel that patient is stable for discharge. HEART score low risk. I will order outpatient plasma free metanephrine and urinary fractionated metanephrine to assess for possible pheochromocytoma and send results to his PCP, Dr. Quevedo. Strict return precautions discussed with patient. Discussed importance for follow-up with his primary care provider and the chief engineer. Voices understanding and is agreeable to plan of care. Denies any further questions or concerns at this time. Diagnostics: EKG, CBC, CMP, CXR, Trop, UA, Mg, TSH (Outpatient plasma free metanephrine / urinary fractionated metanephrine 24 hr) Therapeutics: NS Prescription: RX for outpatient plasma free metanephrines / urinary fractionated metanephrines 24 hr Impression: Palpitations Flushing Hypertension Plan: 1. You are to start fasting at midnight tonight with lab draw in the margining as discussed. You have been provided with an outpatient order script to do this testing. You have also been provided with a 24 hour urine collection kit. These results will be sent to your primary care provider, Dr. Quevedo for follow up. Do not drink alcohol, coffee, tea, tobacco, or exercise from now until the lab draw in the morning. 2. Follow-up with your primary care provider, Dr. Quevedo / Cardiology as discussed. Return to the ED as needed and as discussed. Definitive disposition and diagnosis as appropriate pending reevaluation and review of above. - Related Data Allergies Allergy/AdvReac Type Severity Reaction Status Date / Time No Known Allergies Allergy Verified 10/09/20 18:56 Home Meds: Home Meds Aspirin 1 dose PO DAILY 10/09/20 [History] Propranolol [Inderal] 10 mg PO BID PRN 10/09/20 [History] buPROPion [Wellbutrin] 150 mg PO BEDTIME 10/09/20 [History] Past Medical History - Past Health History Medical/Surgical History: Denies Medical/Surgical History HEENT History: Reports: None Cardiovascular History: Reports: None Respiratory History: Reports: Sleep Apnea Other Respiratory History: allergy induced asthma as a teenager, uses CPAP Gastrointestinal History: Reports: GERD Other Gastrointestinal History: intermittent epigastric pain, h/o gastric ulcer, ultrasound 12/30 - fatty liver infiltration Genitourinary History: Reports: None Musculoskeletal History: Reports: Arthritis Other Musculoskeletal History: intermittent sciatic nerve pain Neurological History: Reports: None Psychiatric History: Reports: Anxiety, Depression, Panic Attack, PTSD Endocrine/Metabolic History: Reports: Obesity/BMI 30+ Hematologic History: Reports: None Immunologic History: Reports: None Oncologic (Cancer) History: Reports: None Dermatologic History: Reports: None - Infectious Disease History Infectious Disease History: Reports: Chicken Pox - Past Surgical History Head Surgeries/Procedures: Reports: None HEENT Surgical History: Reports: None Cardiovascular Surgical History: Reports: None Respiratory Surgical History: Reports: None GI Surgical History: Reports: EGD Male Surgical History: Reports: None Endocrine Surgical History: Reports: None Neurological Surgical History: Reports: None Musculoskeletal Surgical History: Reports: None Oncologic Surgical History: Reports: None Dermatological Surgical History: Reports: None Social & Family History - Family History Family Medical History: No Pertinent Family History - Tobacco Use Tobacco Use Status *Q: Never Tobacco User - Caffeine Use Caffeine Use: Reports: None - Recreational Drug Use Recreational Drug Use: No ED ROS GENERAL - Review of Systems Review Of Systems: Comprehensive ROS is negative, except as noted in HPI. ED EXAM, GENERAL - Physical Exam Exam: See Below (see dictation) Course - Vital Signs Last Recorded V/S: Last Vital Signs Temp 97.3 F 10/17/20 18:28 Pulse 76 10/17/20 19:34 Resp 16 10/17/20 19:34 BP 120/54 L 10/17/20 19:34 Pulse Ox 97 10/17/20 19:34 - Orders/Labs/Meds Orders: Active Orders 24 hr Category Date Time Status Cardiac Monitoring [RC] . DIRECTED Care 10/17/20 18:35 Active EKG Documentation Completion [RC] STAT Care 10/17/20 18:35 Active METANEPHRINES, FRAC, QN, 24-HR Stat Lab 10/17/20 18:39 Ordered METANEPHRINES, FRAC., PL. FREE [REF] Stat Lab 10/17/20 18:39 Ordered Sodium Chloride 0.9% [Saline Flush] Med 10/17/20 18:35 Active 10 ml FLUSH ASDIRECTED PRN Sodium Chloride 0.9% [Saline Flush] Med 10/17/20 18:35 Active 2.5 ml FLUSH ASDIRECTED PRN Saline Lock Insert [OM.PC] Stat Oth 10/17/20 18:35 Ordered Medication Orders Sodium Chloride (Sodium Chloride 0.9% 2.5 Ml Syringe) 2.5 ml FLUSH ASDIRECTED PRN PRN Reason: Keep Vein Open Last Admin: 10/17/20 18:59 Dose: 2.5 ml Documented by: CHRISTOPHER Sodium Chloride (Sodium Chloride 0.9% 10 Ml Syringe) 10 ml FLUSH ASDIRECTED PRN PRN Reason: Keep Vein Open Last Admin: 10/17/20 18:59 Dose: 10 ml Documented by: CHRISTOPHER Labs: Laboratory Tests 10/17/20 10/17/20 10/17/20 Range/Units 18:29 18:29 19:23 WBC 13.45 H (4.0-11.0) K/uL RBC 4.98 (4.50-5.90) M/uL Hgb 16.3 (13.0-17.0) g/dL Hct 45.9 (38.0-50.0) % MCV 92.2 (80.0-98.0) fL MCH 32.7 H (27.0-32.0) pg MCHC 35.5 (31.0-37.0) g/dL RDW Std Deviation 41.6 (28.0-62.0) fl RDW Coeff of Yuval 12 (11.0-15.0) % Plt Count 228 (150-400) K/uL MPV 10.30 (7.40-12.00) fL Neut % (Auto) 75.9 (48.0-80.0) % Lymph % (Auto) 17.8 (16.0-40.0) % [place] % (Auto) 5.4 (0.0-15.0) % Eos % (Auto) 0.7 (0.0-7.0) % Baso % (Auto) 0.2 (0.0-1.5) % Neut # (Auto) 10.2 H (1.4-5.7) K/uL Lymph # (Auto) 2.4 (0.6-2.4) K/uL [place] # (Auto) 0.7 (0.0-0.8) K/uL Eos # (Auto) 0.1 (0.0-0.7) K/uL Baso # (Auto) 0.0 (0.0-0.1) K/uL Nucleated RBC % 0.0 /100WBC Nucleated RBCs # 0 K/uL Sodium 140 (136-148) mmol/L Potassium 3.8 (3.5-5.1) mmol/L Chloride 105 (98-107) mmol/L Carbon Dioxide 25.3 (21.0-32.0) mmol/L BUN 21 H (7.0-18.0) mg/dL Creatinine 1.3 (0.8-1.3) mg/dL Est Cr Clr Drug Dosing 67.96 mL/min Estimated GFR (MDRD) 59.2 ml/min Glucose 141 H (74-106) mg/dL Calcium 8.8 (8.5-10.1) mg/dL Magnesium 1.7 L (1.8-2.4) mg/dL Total Bilirubin 0.7 (0.2-1.0) mg/dL AST 10 L (15-37) IU/L ALT 19 (14-63) IU/L Alkaline Phosphatase 92 (46-116) U/L Troponin I < 0.050 (0.000-0.056) ng/mL Total Protein 6.8 (6.4-8.2) g/dL Albumin 3.8 (3.4-5.0) g/dL Globulin 3.0 (2.6-4.0) g/dL Albumin/Globulin Ratio 1.3 (0.9-1.6) Lipase 106 (73-393) U/L TSH 3rd Generation 0.67 (0.36-3.74) uIU/mL Urine Color YELLOW Urine Appearance CLEAR Urine pH 5.0 (5.0-8.0) Ur Specific [place] >= 1.030 (1.001-1.035) Urine Protein NEGATIVE (NEGATIVE) mg/dL Urine Glucose (UA) NEGATIVE (NEGATIVE) mg/dL Urine Ketones NEGATIVE (NEGATIVE) mg/dL Urine Occult Blood NEGATIVE (NEGATIVE) Urine Nitrite NEGATIVE (NEGATIVE) Urine Bilirubin NEGATIVE (NEGATIVE) Urine Urobilinogen 0.2 (<2.0) EU/dL Ur Leukocyte Esterase NEGATIVE (NEGATIVE) Meds: Medications Generic Name Dose Route Start Last Admin Trade Name Freq PRN Reason Stop Dose Admin Sodium Chloride 2.5 ml 10/17/20 18:35 10/17/20 18:59 Sodium Chloride 0.9% 2.5 Ml Syringe FLUSH 2.5 ml ASDIRECTED PRN Administration Keep Vein Open Sodium Chloride 10 ml 10/17/20 18:35 10/17/20 18:59 Sodium Chloride 0.9% 10 Ml Syringe FLUSH 10 ml ASDIRECTED PRN Administration Keep Vein Open Discontinued Medications Generic Name Dose Route Start Last Admin Trade Name Freq PRN Reason Stop Dose Admin Sodium Chloride 1,000 mls @ 999 mls/hr 10/17/20 18:40 10/17/20 18:58 Normal Saline IV 10/17/20 19:40 999 mls/hr STAT ONE Administration Magnesium Chloride 64 mg 10/17/20 20:05 Magnesium Chloride 64 Mg Tab.Er PO 10/17/20 20:06 NOW STA Departure - Departure Time of Disposition: 20:23 Disposition: Home, Self-Care 01 Clinical Impression: Palpitations, Flushing Hypertension Qualifiers: Hypertension type: unspecified Qualified Code(s): I10 - Essential (primary) hypertension - Discharge Information Referrals: PCP,None [Primary Care Provider] - Additional Instructions: The following information is given to patients seen in the emergency department who are being discharged to home. This information is to outline your options for follow-up care. We provide all patients seen in our emergency department with a follow-up referral. The need for follow-up, as well as the timing and circumstances, are variable depending upon the specifics of your emergency department visit. If you don't have a primary care physician on staff, we will provide you with a referral. We always advise you to contact your personal physician following an emergency department visit to inform them of the circumstance of the visit and for follow-up with them and/or the need for any referrals to a consulting specialist. The emergency department will also refer you to a specialist when appropriate. This referral assures that you have the opportunity for follow-up care with a specialist. All of these measure are taken in an effort to provide you with optimal care, which includes your follow-up. Under all circumstances we always encourage you to contact your private physician who remains a resource for coordinating your care. When calling for follow-up care, please make the office aware that this follow-up is from your recent emergency room visit. If for any reason you are refused follow-up, please contact the [facility] Emergency Department at and asked to speak to the emergency department charge nurse. [facility] Primary Care / Cardiology [address] [place] [address] [place] [address] 1. You are to start fasting at midnight tonight with lab draw in the margining as discussed. You have been provided with an outpatient order script to do this testing. You have also been provided with a 24 hour urine collection kit. These results will be sent to your primary care provider, Dr. Quevedo for follow up. Do not drink alcohol, coffee, tea, tobacco, or exercise from now until the lab draw in the morning. 2. Follow-up with your primary care provider, Dr. Quevedo / cardiology as discussed. Return to the ED as needed and as discussed. Sepsis Event Note (ED) - Evaluation Sepsis Screening Result: No Definite Risk - Focused Exam Vital Signs: Vital Signs Temp Pulse Resp BP Pulse Ox 10/17/20 19:34 76 16 120/54 L 97 10/17/20 18:28 97.3 F 85 17 142/93 H 98 - My Orders Last 24 Hours: My Active Orders 10/17/20 18:35 Cardiac Monitoring [RC] . DIRECTED EKG Documentation Completion [RC] STAT Sodium Chloride 0.9% [Saline Flush] 10 ml FLUSH ASDIRECTED PRN Sodium Chloride 0.9% [Saline Flush] 2.5 ml FLUSH ASDIRECTED PRN Saline Lock Insert [OM.PC] Stat 10/17/20 18:39 METANEPHRINES, FRAC, QN, 24-HR Stat METANEPHRINES, FRAC., PL. FREE [REF] Stat - Assessment/Plan Last 24 Hours: My Active Orders 10/17/20 18:35 Cardiac Monitoring [RC] . DIRECTED EKG Documentation Completion [RC] STAT Sodium Chloride 0.9% [Saline Flush] 10 ml FLUSH ASDIRECTED PRN Sodium Chloride 0.9% [Saline Flush] 2.5 ml FLUSH ASDIRECTED PRN Saline Lock Insert [OM.PC] Stat 10/17/20 18:39 METANEPHRINES, FRAC, QN, 24-HR Stat METANEPHRINES, FRAC., PL. FREE [REF] Stat
== END 2020-10-17 20:45 | disposition home or self-care (01) ==
LOC: MW.ED 18:21
DX: R00.2 Palpitations (principal); I10 Essential (primary) hypertension; R23.2 Flushing; E66.9 Obesity, unspecified; Z68.36 Body mass index [BMI] 36.0-36.9, adult; Z79.82 Long term (current) use of aspirin; Z79.899 Other long term (current) drug therapy
CPT/HCPCS: 36415; 71045; 80053; 81003; 83690; 83735; 84443; 84484; 85025; 93005; 99285; A9270; J7030; 99283

== ENCOUNTER 2020-10-30 21:35 | Emergency (ER) | payer OTHER, BC ==
[2020-10-30] MEDS ORDERED: Sodium Chloride 0.9% 10 ML Syringe FLUSH PRN (22:02)
[2020-10-30] MEDS ORDERED: Sodium Chloride 0.9% 2.5 ML Syringe FLUSH PRN (22:02)
--- NOTE | 2020-10-30 22:03 | EDM.PDOC ---
ED HPI GENERAL MEDICAL PROBLEM - General Chief Complaint: General Stated Complaint: CHEST PAINS Time Seen by Provider: 10/30/20 21:52 - History of Present Illness INITIAL COMMENTS - FREE TEXT/NARRATIVE: History of present illness: This is the fourth time in the last 4 weeks of this patient has been evaluated for chest pain. Chest pain started 4 hours ago. Is the same as the prior chest pains. Is in the left side of his chest moderately severe. He has no significant shortness of breath diaphoresis or fever. There is no cough. The patient has had a CT to rule out aortic dissection. He has x-rays and enzymes in recent visits. The first of those visits was at the [place] and then to in the emergency department. He was admitted overnight in September. The patient has a stress test scheduled are to be scheduled in my not and has seen the interventional nurse. The date of the test is unknown. He has had no anatomic study of his heart recently. The patient was a smoker for more than 10 years and quit about 3 years ago. He is a family history of strokes and a grandparent that had coronary vessel disease. He is not treated for diabetes blood pressure or cholesterol. [] Review of systems: As per history of present illness and below otherwise all systems reviewed and negative. Past medical history: As per history of present illness and as reviewed below otherwise noncontributory. Surgical history: As per history of present illness and as reviewed below otherwise noncontributory. Social history: No reported history of drug or alcohol abuse. Family history: As per history of present illness and as reviewed below otherwise noncontributory. Physical exam: Constitutional - well developed, well-nourished and in no acute distress HEENT - normocephalic, no evidence of trauma - external nose and mouth normal - no mass in neck and no JVD - mucosae moist EYES - full EOM, PERRL, no icterus - no evidence of inflammation, injection, or drainage Respiratory - no respiratory distress, equal bilateral expansion, lungs clear to auscultation and no abnormal lung sounds Cardiovascular - Regular Rhythm with S1 and S2 appreciated and no murmur, gallop or rub. GI - abdomen soft without distension or organomegaly - normal bowel sounds - no guard or rebound Musculoskeletal no gross deformity of long bones or joints - no tenderness, swelling or edema Neurologic - Alert and oriented times four - CN II-XII grossly intact - motor sensory and coordination symmetrically normal Psychiatric - appropriate mood and affect with normal thought content Hematologic - No petechiae or purpura - mucosa appropriate color and sclera not pale - normal nail bed color and refill Integument - no rash or evidence of trauma - normal turgor Diagnostics: [] Therapeutics: [] Impression: [] Plan: [] Definitive disposition and diagnosis as appropriate pending reevaluation and review of above. - Related Data Allergies Allergy/AdvReac Type Severity Reaction Status Date / Time No Known Allergies Allergy Verified 10/30/20 21:48 Home Meds: Home Meds Aspirin 1 dose PO DAILY 10/09/20 [History] Propranolol [Inderal] 10 mg PO BID PRN 10/09/20 [History] buPROPion [Wellbutrin] 150 mg PO BEDTIME 10/09/20 [History] ALPRAZolam [Xanax] 1 mg PO TID PRN #15 tablet 10/31/20 [Rx] Past Medical History - Past Health History Medical/Surgical History: Denies Medical/Surgical History HEENT History: Reports: None Cardiovascular History: Reports: None Respiratory History: Reports: Sleep Apnea Other Respiratory History: allergy induced asthma as a teenager, uses CPAP Gastrointestinal History: Reports: GERD Other Gastrointestinal History: intermittent epigastric pain, h/o gastric ulcer, ultrasound 12/30 - fatty liver infiltration Genitourinary History: Reports: None Musculoskeletal History: Reports: Arthritis Other Musculoskeletal History: intermittent sciatic nerve pain Neurological History: Reports: None Psychiatric History: Reports: Anxiety, Depression, Panic Attack, PTSD Endocrine/Metabolic History: Reports: Obesity/BMI 30+ Hematologic History: Reports: None Immunologic History: Reports: None Oncologic (Cancer) History: Reports: None Dermatologic History: Reports: None - Infectious Disease History Infectious Disease History: Reports: Chicken Pox - Past Surgical History Head Surgeries/Procedures: Reports: None HEENT Surgical History: Reports: None Cardiovascular Surgical History: Reports: None Respiratory Surgical History: Reports: None GI Surgical History: Reports: EGD Male Surgical History: Reports: None Endocrine Surgical History: Reports: None Neurological Surgical History: Reports: None Musculoskeletal Surgical History: Reports: None Oncologic Surgical History: Reports: None Dermatological Surgical History: Reports: None Social & Family History - Family History Family Medical History: No Pertinent Family History - Caffeine Use Caffeine Use: Reports: None ED ROS GENERAL - Review of Systems Review Of Systems: Comprehensive ROS is negative, except as noted in HPI. ED EXAM, GENERAL - Physical Exam Exam: See Below Free Text/Narrative:: My physical exam is in the HPI #1 Interpretation EKG Interpretation Comments: EKG done at 2139 hrs. Sinus rhythm heart rate 74. [place] 178. QT duration 405. [place] X. Inferior Q waves. Compared to 10/17/2020 no change impression no acute injury Course - Vital Signs Text/Narrative:: 13:15 D Dimer exceeds normal limits and prior CT was not done with PE techniuque but for aortic dissection CT angio ordered Angio failed to show any pulmonary embolism patient was markedly improved. Discharged in satisfactory condition oh 1:19 AM Last Recorded V/S: Last Vital Signs Temp 36.1 C 10/30/20 21:49 Pulse 60 10/31/20 00:17 Resp 18 10/31/20 00:17 BP 99/66 10/31/20 00:17 Pulse Ox 95 10/31/20 00:17 - Orders/Labs/Meds Orders: Active Orders 24 hr Category Date Time Status EKG Documentation Completion [RC] AM Care 10/30/20 22:02 Active Sodium Chloride 0.9% [Saline Flush] Med 10/30/20 22:02 Active 10 ml FLUSH ASDIRECTED PRN Sodium Chloride 0.9% [Saline Flush] Med 10/30/20 22:02 Active 2.5 ml FLUSH ASDIRECTED PRN Saline Lock Insert [OM.PC] Stat Oth 10/30/20 22:03 Ordered Medication Orders Sodium Chloride (Sodium Chloride 0.9% 10 Ml Syringe) 10 ml FLUSH ASDIRECTED PRN PRN Reason: Keep Vein Open Last Admin: 10/30/20 22:23 Dose: 10 ml Documented by: [id number] Sodium Chloride (Sodium Chloride 0.9% 2.5 Ml Syringe) 2.5 ml FLUSH ASDIRECTED PRN PRN Reason: Keep Vein Open Last Admin: 10/30/20 22:23 Dose: 2.5 ml Documented by: [id number] Labs: Laboratory Tests 10/30/20 10/30/20 10/30/20 Range/Units 22:32 22:32 22:45 D-Dimer, Quantitative 0.61 H (0.0-0.50) mg/L FEU Sodium 139 (136-148) mmol/L Potassium 4.4 (3.5-5.1) mmol/L Chloride 102 (98-107) mmol/L Carbon Dioxide 23.6 (21.0-32.0) mmol/L BUN 18 (7.0-18.0) mg/dL Creatinine 1.4 H (0.8-1.3) mg/dL Est Cr Clr Drug Dosing 63.11 mL/min Estimated GFR (MDRD) 54.3 ml/min Glucose 177 H (74-106) mg/dL Calcium 8.8 (8.5-10.1) mg/dL Troponin I < 0.050 (0.000-0.056) ng/mL 10/31/20 Range/Units 00:37 D-Dimer, Quantitative (0.0-0.50) mg/L FEU Sodium (136-148) mmol/L Potassium (3.5-5.1) mmol/L Chloride (98-107) mmol/L Carbon Dioxide (21.0-32.0) mmol/L BUN (7.0-18.0) mg/dL Creatinine (0.8-1.3) mg/dL Est Cr Clr Drug Dosing mL/min Estimated GFR (MDRD) ml/min Glucose (74-106) mg/dL Calcium (8.5-10.1) mg/dL Troponin I < 0.050 (0.000-0.056) ng/mL Meds: Medications Generic Name Dose Route Start Last Admin Trade Name Freq PRN Reason Stop Dose Admin Sodium Chloride 10 ml 10/30/20 22:02 10/30/20 22:23 Sodium Chloride 0.9% 10 Ml Syringe FLUSH 10 ml ASDIRECTED PRN Administration Keep Vein Open Sodium Chloride 2.5 ml 10/30/20 22:02 10/30/20 22:23 Sodium Chloride 0.9% 2.5 Ml Syringe FLUSH 2.5 ml ASDIRECTED PRN Administration Keep Vein Open Discontinued Medications Generic Name Dose Route Start Last Admin Trade Name Freq PRN Reason Stop Dose Admin Sodium Chloride 1,000 mls @ 1,000 mls/hr 10/30/20 23:26 10/30/20 23:29 Normal Saline IV 10/31/20 00:25 1,000 mls/hr .Bolus ONE Administration Iopamidol 100 ml 10/30/20 23:58 10/30/20 23:59 Iopamidol 755 Mg/Ml 100 Ml Bottle IVPUSH 10/30/20 23:59 100 ml ONETIME ONE Administration Ketorolac Tromethamine 15 mg 10/30/20 22:11 10/30/20 22:23 Ketorolac 30 Mg/Ml Sdv IVPUSH 10/30/20 22:12 15 mg ONETIME ONE Administration Lorazepam 1 mg 10/31/20 01:16 Lorazepam 2 Mg/Ml Sdv IVPUSH 10/31/20 01:17 ONETIME ONE Departure - Departure Time of Disposition: 01:19 Disposition: Home, Self-Care 01 Condition: Good Clinical Impression: Chest pain Qualifiers: Chest pain type: unspecified Qualified Code(s): R07.9 - Chest pain, unspecified - Discharge Information Prescriptions: ALPRAZolam [Xanax] 1 mg PO TID PRN #15 tablet PRN Reason: Anxiety Instructions: Nonspecific Chest Pain, Adult Referrals: Bentley Pena MD [Primary Care Provider] - Forms: ED Department Discharge Additional Instructions: Have a stress test or coronary vessel angiogram this week so that you do not need to continue to worry about this pain. You need some definitive management if it is coronary vessel disease. Try the anxiety medicine when you feel like you are having an attack and see with the responses and report that to your doctor. [facility] - Primary Care [address] [place] [address] [place] [id number] The following information is given to patients seen in the emergency department who are being discharged to home. This information is to outline your options for follow-up care. We provide all patients seen in our emergency department with a follow-up referral. The need for follow-up, as well as the timing and circumstances, are variable depending upon the specifics of your emergency department visit. If you don't have a primary care physician on staff, we will provide you with a referral. We always advise you to contact your personal physician following an emergency department visit to inform them of the circumstance of the visit and for follow-up with them and/or the need for any referrals to a consulting specialist. The emergency department will also refer you to a specialist when appropriate. This referral assures that you have the opportunity for follow-up care with a specialist. All of these measure are taken in an effort to provide you with optimal care, which includes your follow-up. Under all circumstances we always encourage you to contact your private physician who remains a resource for coordinating your care. When calling for follow-up care, please make the office aware that this follow-up is from your recent emergency room visit. If for any reason you are refused follow-up, please contact the [facility] Emergency Department at and asked to speak to the emergency department charge nurse. Sepsis Event Note (ED) - Evaluation Sepsis Screening Result: No Definite Risk - Focused Exam Vital Signs: Vital Signs Temp Pulse Resp BP Pulse Ox 10/31/20 00:17 60 18 99/66 95 10/30/20 23:13 66 18 111/57 L 95 10/30/20 22:43 69 18 105/61 95 10/30/20 21:49 36.1 C 80 18 127/85 95 - My Orders Last 24 Hours: My Active Orders 10/30/20 22:02 EKG Documentation Completion [RC] AM Sodium Chloride 0.9% [Saline Flush] 10 ml FLUSH ASDIRECTED PRN Sodium Chloride 0.9% [Saline Flush] 2.5 ml FLUSH ASDIRECTED PRN 10/30/20 22:03 Saline Lock Insert [OM.PC] Stat - Assessment/Plan Last 24 Hours: My Active Orders 10/30/20 22:02 EKG Documentation Completion [RC] AM Sodium Chloride 0.9% [Saline Flush] 10 ml FLUSH ASDIRECTED PRN Sodium Chloride 0.9% [Saline Flush] 2.5 ml FLUSH ASDIRECTED PRN 10/30/20 22:03 Saline Lock Insert [OM.PC] Stat
[2020-10-30] MEDS ORDERED: Ketorolac 30 MG/ML SDV IVPUSH ONE (22:11)
[2020-10-30 23:03] LABS: CARBON DIOXIDE,CO2 23.6 mmol/L (21.0-32.0); POTASSIUM,K 4.4 mmol/L (3.5-5.1)
[2020-10-30] MEDS ORDERED: Sodium Chloride 0.9% 1,000 ML IV ONE (23:26)
[2020-10-30] MEDS ORDERED: Iopamidol 755 Mg/ML 100 ML Bottle IVPUSH ONE (23:58)
--- NOTE | 2020-10-31 00:31 | CT ---
INDICATION: Chest pain with elevated D-dimer TECHNIQUE: CT chest with i.v. contrast using pulmonary angiographic technique. Coronal and sagittal reformats were obtained. CONTRAST: 75 mL Isovue 370 COMPARISON: 10/09/2020 FINDINGS: Cardiovascular: The pulmonary arteries are unremarkable in enhancement with no evidence of acute pulmonary embolism. The main pulmonary artery is at the upper limits of normal in size measuring 2.9 cm. The heart has an unremarkable appearance and size. No sign of aneurysm in the thoracic aorta. Mediastinum: No mass or adenopathy seen. Lung: Mosaic attenuation is present bilaterally, likely due to small airways disease with lobular air-trapping. Pleura and pericardium: No sign of pleural effusion seen. No significant pericardial effusion is present. Chest wall and axilla: No mass or adenopathy seen. Bone: Unremarkable for age. Upper abdomen: Unremarkable. IMPRESSION: 1. No CT evidence of acute pulmonary emboli seen. Dictated by Coleman Osman MD @ 10/31/2020 12:30:29 AM Please note that all CT scans at this facility use dose modulation, iterative reconstruction, and/or weight-based dosing when appropriate to reduce radiation dose to as low as reasonably achievable. Dictated by: Coleman Osman MD @ 10/31/2020 00:30:35 (Electronically Signed)
[2020-10-31] MEDS ORDERED: LORazepam 2 MG/ML SDV IVPUSH ONE (01:16)
== END 2020-10-31 01:40 | disposition home or self-care (01) ==
LOC: MW.ED 21:35
DX: R07.9 Chest pain, unspecified (principal); M19.90 Unspecified osteoarthritis, unspecified site; E66.9 Obesity, unspecified; Z68.23 Body mass index [BMI] 23.0-23.9, adult; Z87.891 Personal history of nicotine dependence; Z79.82 Long term (current) use of aspirin; Z79.899 Other long term (current) drug therapy
CPT/HCPCS: 36415; 71275; 80048; 84484; 85379; 93005; 96374; 96375; 99285; J1885; J2060; J7030; Q9967

== ENCOUNTER 2020-11-29 18:34 | Emergency (ER) | payer OTHER ==
--- NOTE | 2020-11-29 19:16 | PCM.EKG ---
#1 Interpretation EKG Date: 11/29/20 Time: 17:52 Rhythm: NSR Rate (Beats/Min): 90 ST-T: Normal
[2020-11-29] MEDS ORDERED: Sodium Chloride 0.9% 1,000 ML IV ONE (19:18)
[2020-11-29] MEDS ORDERED: Acetaminophen 500 MG Tab PO ONE (19:20)
[2020-11-29] MEDS ORDERED: LORazepam 2 MG/ML SDV IVPUSH ONE (19:21)
--- NOTE | 2020-11-29 19:49 | EDM.PDOC ---
ED HPI GENERAL MEDICAL PROBLEM - General Chief Complaint: Chest Pain Stated Complaint: CHEST PAINS Time Seen by Provider: 11/29/20 18:47 Source of Information: Reports: Patient History Limitations: Reports: No Limitations - History of Present Illness INITIAL COMMENTS - FREE TEXT/NARRATIVE: HISTORY AND PHYSICAL: History of present illness: Patient is a 45-year-old male, who is well known to myself, who presents to the emergency department via EMS for a 1 hour palpitations and anxiety episode that resolved prior to arrival to he ED. Patient reports that he was awoken from a nap and he could tell that his heart was beating fast. Patient states that at home pulse oximeter showed a heart rate of 150 bpm. Patient reports that he has had many similar episodes of this and has been to the emergency department many times and evaluated for the same symptoms. Patient relates that he has been evaluated by many different specialists for possible causes for this and was told he is having SVT attacks after a Zio patch was placed and is scheduled for a stress test this coming Friday with follow-up with cardiology following the stress test. Patient denies any other symptoms or concerns. Patient denies fever, chills, chest pain, shortness of breath, or cough. Denies headache, neck stiff ness, change in vision, syncope, or near syncope. Denies nausea, vomiting, abdominal pain, diarrhea, constipation, or dysuria. Has not noted any blood in urine or stool. Patient has been eating and drinking appropriately. Review of systems: As per history of present illness and below otherwise all systems reviewed and negative. Past medical history: As per history of present illness and as reviewed below otherwise noncontributory. Surgical history: As per history of present illness and as reviewed below otherwise noncontributory. Social history: See social history for further information Family history: As per history of present illness and as reviewed below otherwise noncontributory. Physical exam: General: Patient is alert, oriented, and in no acute distress. Patient sitting comfortably on exam table. Patient's vital signs are stable and reviewed by me. HEENT: Atraumatic, normocephalic, pupils equal and reactive bilaterally, negative for conjunctival pallor or scleral icterus, mucous membranes moist, TMs normal bilaterally, throat clear, neck supple, nontender, trachea midline. No drooling or trismus noted. No meningeal signs. No hot potato voice noted. Lungs: Clear to auscultation, breath sounds equal bilaterally, chest nontender. Heart: S1S2, regular rate and rhythm without overt murmur Abdomen: Soft, nondistended, nontender. Negative for masses or hepatosplenomegaly. Negative for costovertebral tenderness. Pelvis: Stable nontender. Genitourinary: Deferred. Rectal: Deferred. Skin: Intact, warm, dry. No lesions or rashes noted. Extremities: Atraumatic, negative for cords or calf pain. Neurovascular unremarkable. Neuro: Awake, alert, oriented. Cranial nerves II through XII unremarkable. Cerebellum unremarkable. Motor and sensory unremarkable throughout. Exam nonfocal. Notes: Patient is a 45-year-old male, who is well known by myself, who presents to the emergency department via EMS secondary to a 1 hour history of palpitations. Patient has been evaluated for this by multiple providers and currently scheduled for a stress test on Friday with cardiology follow up. On examination patient is resting comfortably on the bed and his vital signs are stable and states that he is asymptomatic at this time. Patient does have results of his Zio patch with him which states that he has been having several episodes of SVT with a rate of 150s to 160s. He states that after the stress test, he is supposed to follow-up with cardiology to come up with a definitive plan for this. Will obtain cardiac evaluation. See Dr. Phoenix's dictation for formal interpretation of EKG, otherwise normal sinus rhythm with no signs of ischemia, no ST T elevation or depression. Mild derangements of lab work unremarkable today. Troponin negative. No acute intrathoracic abnormality identified on chest x-ray. Upon reevaluation of patient, he remains vitally stable and asymptomatic throughout stay in ED. Signs and symptoms are prompt return to the ED thoroughly discussed with patient. Discussed importance for follow-up with a box fabricator and to ensure that he goes to the stress test as he is scheduled. Voices understanding and is agreeable to plan of care. Denies any further questions or concerns at this time. Diagnostics: CBC, CMP, EKG, troponin, CXR Therapeutics: Tylenol, Ativan Prescription: None Impression: Palpitations Plan: 1. Follow-up with your primary care provider and box fabricator as discussed. Return to the ED as needed and as discussed. Definitive disposition and diagnosis as appropriate pending reevaluation and review of above. chest Pain Score (Numeric/FACES): 6 - Related Data Allergies Allergy/AdvReac Type Severity Reaction Status Date / Time No Known Allergies Allergy Verified 11/29/20 19:11 Home Meds: Home Meds Aspirin 1 dose PO DAILY 10/09/20 [History] Propranolol [Inderal] 10 mg PO BID PRN 10/09/20 [History] buPROPion [Wellbutrin] 150 mg PO BEDTIME 10/09/20 [History] ALPRAZolam [Xanax] 1 mg PO TID PRN #15 tablet 10/31/20 [Rx] Past Medical History - Past Health History Medical/Surgical History: Denies Medical/Surgical History HEENT History: Reports: None Cardiovascular History: Reports: None Other Cardiovascular History: Patient states "i have a history of SVT" Respiratory History: Reports: Sleep Apnea Other Respiratory History: allergy induced asthma as a teenager, uses CPAP Gastrointestinal History: Reports: GERD Other Gastrointestinal History: intermittent epigastric pain, h/o gastric ulcer, ultrasound 12/30 - fatty liver infiltration Genitourinary History: Reports: None Musculoskeletal History: Reports: Arthritis Other Musculoskeletal History: intermittent sciatic nerve pain Neurological History: Reports: None Psychiatric History: Reports: Anxiety, Depression, Panic Attack, PTSD Endocrine/Metabolic History: Reports: Obesity/BMI 30+ Hematologic History: Reports: None Immunologic History: Reports: None Oncologic (Cancer) History: Reports: None Dermatologic History: Reports: None - Infectious Disease History Infectious Disease History: Reports: Chicken Pox - Past Surgical History Head Surgeries/Procedures: Reports: None HEENT Surgical History: Reports: None Cardiovascular Surgical History: Reports: None Respiratory Surgical History: Reports: None GI Surgical History: Reports: EGD Male Surgical History: Reports: None Endocrine Surgical History: Reports: None Neurological Surgical History: Reports: None Musculoskeletal Surgical History: Reports: None Oncologic Surgical History: Reports: None Dermatological Surgical History: Reports: None Social & Family History - Family History Family Medical History: No Pertinent Family History - Tobacco Use Tobacco Use Status *Q: Never Tobacco User Second Hand Smoke Exposure: No - Caffeine Use Caffeine Use: Reports: None - Recreational Drug Use Recreational Drug Use: No ED ROS GENERAL - Review of Systems Review Of Systems: Comprehensive ROS is negative, except as noted in HPI. ED EXAM, GENERAL - Physical Exam Exam: See Below (see dictation) Course - Vital Signs Last Recorded V/S: Last Vital Signs Temp 98.0 F 11/29/20 20:50 Pulse 68 11/29/20 20:50 Resp 18 11/29/20 20:50 BP 110/62 11/29/20 20:50 Pulse Ox 97 11/29/20 20:50 - Orders/Labs/Meds Labs: Laboratory Tests 11/29/20 11/29/20 Range/Units 19:24 19:24 WBC 11.18 H (4.0-11.0) K/uL RBC 5.00 (4.50-5.90) M/uL Hgb 16.6 (13.0-17.0) g/dL Hct 45.6 (38.0-50.0) % MCV 91.2 (80.0-98.0) fL MCH 33.2 H (27.0-32.0) pg MCHC 36.4 (31.0-37.0) g/dL RDW Std Deviation 43.2 (28.0-62.0) fl RDW Coeff of Yuval 13 (11.0-15.0) % Plt Count 211 (150-400) K/uL MPV 10.00 (7.40-12.00) fL Neut % (Auto) 62.0 (48.0-80.0) % Lymph % (Auto) 26.6 (16.0-40.0) % [place] % (Auto) 9.0 (0.0-15.0) % Eos % (Auto) 2.1 (0.0-7.0) % Baso % (Auto) 0.3 (0.0-1.5) % Neut # (Auto) 6.9 H (1.4-5.7) K/uL Lymph # (Auto) 3.0 H (0.6-2.4) K/uL [place] # (Auto) 1.0 H (0.0-0.8) K/uL Eos # (Auto) 0.2 (0.0-0.7) K/uL Baso # (Auto) 0.0 (0.0-0.1) K/uL Nucleated RBC % 0.0 /100WBC Nucleated RBCs # 0 K/uL Sodium 140 (136-148) mmol/L Potassium 3.7 (3.5-5.1) mmol/L Chloride 104 (98-107) mmol/L Carbon Dioxide 26.2 (21.0-32.0) mmol/L BUN 21 H (7.0-18.0) mg/dL Creatinine 1.3 (0.8-1.3) mg/dL Est Cr Clr Drug Dosing TNP Estimated GFR (MDRD) 59.2 ml/min Glucose 119 H (74-106) mg/dL Calcium 8.5 (8.5-10.1) mg/dL Total Bilirubin 0.5 (0.2-1.0) mg/dL AST 16 (15-37) IU/L ALT 19 (14-63) IU/L Alkaline Phosphatase 85 (46-116) U/L Troponin I < 0.050 (0.000-0.056) ng/mL Total Protein 6.8 (6.4-8.2) g/dL Albumin 3.7 (3.4-5.0) g/dL Globulin 3.1 (2.6-4.0) g/dL Albumin/Globulin Ratio 1.2 (0.9-1.6) Lipase 108 (73-393) U/L Meds: Medications Discontinued Medications Generic Name Dose Route Start Last Admin Trade Name Freq PRN Reason Stop Dose Admin Acetaminophen 1,000 mg 11/29/20 19:20 11/29/20 19:38 Acetaminophen 500 Mg Tab PO 11/29/20 19:21 1,000 mg ONETIME ONE Administration Sodium Chloride 1,000 mls @ 999 mls/hr 11/29/20 19:18 11/29/20 19:38 Normal Saline IV 11/29/20 20:18 999 mls/hr STAT ONE Administration Lorazepam 0.5 mg 11/29/20 19:21 11/29/20 19:39 Lorazepam 2 Mg/Ml Sdv IVPUSH 11/29/20 19:22 0.5 mg ONETIME ONE Administration Departure - Departure Time of Disposition: 20:12 Disposition: Home, Self-Care 01 Clinical Impression: Palpitations - Discharge Information Instructions: Palpitations, [id number] Referrals: PCP,None [Primary Care Provider] - Forms: ED Department Discharge Additional Instructions: The following information is given to patients seen in the emergency department who are being discharged to home. This information is to outline your options for follow-up care. We provide all patients seen in our emergency department with a follow-up referral. The need for follow-up, as well as the timing and circumstances, are variable depending upon the specifics of your emergency department visit. If you don't have a primary care physician on staff, we will provide you with a referral. We always advise you to contact your personal physician following an emergency department visit to inform them of the circumstance of the visit and for follow-up with them and/or the need for any referrals to a consulting specialist. The emergency department will also refer you to a specialist when appropriate. This referral assures that you have the opportunity for follow-up care with a specialist. All of these measure are taken in an effort to provide you with optimal care, which includes your follow-up. Under all circumstances we always encourage you to contact your private physician who remains a resource for coordinating your care. When calling for follow-up care, please make the office aware that this follow-up is from your recent emergency room visit. If for any reason you are refused follow-up, please contact the [facility] Emergency Department at and asked to speak to the emergency department charge nurse. [facility] [address] [place] [address] [address] 1. Follow-up with your primary care provider and box fabricator as discussed. Return to the ED as needed and as discussed. Sepsis Event Note (ED) - Evaluation Sepsis Screening Result: No Definite Risk
[2020-11-29 19:53] LABS: BLOOD UREA NITROGEN,BUN 21 mg/dL (7.0-18.0); CARBON DIOXIDE,CO2 26.2 mmol/L (21.0-32.0); CHLORIDE,CL 104 mmol/L (98-107); GLUCOSE RANDOM 119 mg/dL (74-106); LIPASE 108 U/L (73-393); POTASSIUM,K 3.7 mmol/L (3.5-5.1); SODIUM,NA 140 mmol/L (136-148)
--- NOTE | 2020-11-29 19:55 | CR ---
INDICATION: chest pain/short of breath CHEST, ONE VIEW An AP radiograph of the chest was performed. Comparison: 10/17/2020. The lungs appear clear and no pleural effusions are identified. The cardiomediastinal silhouette and pulmonary vasculature appear normal, as do the visualized bones. IMPRESSION: No acute intrathoracic abnormality identified. BRAN PENALOZA MD [facility] Dictated by: Trino Penaloza MD @ 11/29/2020 19:54:07 (Electronically Signed)
== END 2020-11-29 20:50 | disposition home or self-care (01) ==
LOC: MW.ED 18:34
DX: R00.2 Palpitations (principal); E66.9 Obesity, unspecified; Z68.36 Body mass index [BMI] 36.0-36.9, adult; Z79.82 Long term (current) use of aspirin; Z79.899 Other long term (current) drug therapy
CPT/HCPCS: 36415; 71045; 80053; 83690; 84484; 85025; 93005; 96374; 99285; A9270; J2060; J7030

== ENCOUNTER 2020-11-30 17:43 | Emergency (ER) | payer OTHER ==
--- NOTE | 2020-11-30 17:44 | EDM.PDOC ---
ED HPI GENERAL MEDICAL PROBLEM - General Stated Complaint: CHEST PAINS Time Seen by Provider: 11/30/20 17:44 Source of Information: Reports: Family History Limitations: Reports: Uncooperative - History of Present Illness INITIAL COMMENTS - FREE TEXT/NARRATIVE: 45-year-old male past medical history PTSD presents for chest pain. This is patient's seventh ER visit for similar in the last several weeks. Patient is very poor historian and declining to talk to me. History is from . She notes that patient's pain started shortly before arrival. He describes it as pain in his left chest radiating through his entire left lateral torso and back. He was seen yesterday in the ER for similar symptoms. He has a Holter monitor on and has an appointment for cardiac stress test on Friday and cardiac MRI. chest Pain Score (Numeric/FACES): 3 - Related Data Allergies Allergy/AdvReac Type Severity Reaction Status Date / Time No Known Allergies Allergy Verified 11/30/20 17:58 Home Meds: Home Meds Aspirin 1 dose PO DAILY 10/09/20 [History] Propranolol [Inderal] 10 mg PO BID PRN 10/09/20 [History] buPROPion [Wellbutrin] 150 mg PO BEDTIME 10/09/20 [History] ALPRAZolam [Xanax] 1 mg PO TID PRN #15 tablet 10/31/20 [Rx] Past Medical History - Past Health History Medical/Surgical History: Denies Medical/Surgical History HEENT History: Reports: None Cardiovascular History: Reports: None Other Cardiovascular History: Patient states "i have a history of SVT" Respiratory History: Reports: Sleep Apnea Other Respiratory History: allergy induced asthma as a teenager, uses CPAP Gastrointestinal History: Reports: GERD Other Gastrointestinal History: intermittent epigastric pain, h/o gastric ulcer, ultrasound 12/30 - fatty liver infiltration Genitourinary History: Reports: None Musculoskeletal History: Reports: Arthritis Other Musculoskeletal History: intermittent sciatic nerve pain Neurological History: Reports: None Psychiatric History: Reports: Anxiety, Depression, Panic Attack, PTSD Endocrine/Metabolic History: Reports: Obesity/BMI 30+ Hematologic History: Reports: None Immunologic History: Reports: None Oncologic (Cancer) History: Reports: None Dermatologic History: Reports: None - Infectious Disease History Infectious Disease History: Reports: Chicken Pox - Past Surgical History Head Surgeries/Procedures: Reports: None HEENT Surgical History: Reports: None Cardiovascular Surgical History: Reports: None Respiratory Surgical History: Reports: None GI Surgical History: Reports: EGD Male Surgical History: Reports: None Endocrine Surgical History: Reports: None Neurological Surgical History: Reports: None Musculoskeletal Surgical History: Reports: None Oncologic Surgical History: Reports: None Dermatological Surgical History: Reports: None Social & Family History - Family History Family Medical History: No Pertinent Family History - Caffeine Use Caffeine Use: Reports: None ED ROS GENERAL - Review of Systems Review Of Systems: Unable To Obtain (patient not speaking) Reason Not Obtained: patient not answering questions ED EXAM, GENERAL - Physical Exam Exam: See Below Exam Limited By: No Limitations General Appearance: Alert, WD/WN, No Apparent Distress Throat/Mouth: Normal Voice, No Airway Compromise Head: Atraumatic, Normocephalic Neck: Normal Inspection Respiratory/Chest: No Respiratory Distress, Lungs Clear, Normal Breath Sounds, No Accessory Muscle Use Cardiovascular: Normal Peripheral Pulses, Regular Rate, Rhythm, No Edema GI/Abdominal: Soft, Non-Tender Extremities: Normal Inspection Skin Exam: Warm, Dry, Intact #1 Interpretation EKG Date: 11/30/20 Time: 17:54 Rhythm: NSR Rate (Beats/Min): 71 [place]: Normal P-Wave: Present QRS: Normal ST-T: Normal QT: Normal RI/PQ Interval: 181 Comparison: No Change EKG Interpretation Comments: normal EKG Course - Vital Signs Last Recorded V/S: Last Vital Signs Temp 98 F 11/30/20 17:57 Pulse 78 11/30/20 17:57 Resp 14 11/30/20 17:57 BP 128/82 11/30/20 17:57 Pulse Ox 98 11/30/20 17:57 - Orders/Labs/Meds Orders: Active Orders 24 hr Category Date Time Status EKG Documentation Completion [RC] STAT Care 11/30/20 18:09 Active COMPREHENSIVE METABOLIC PN,CMP [CHEM] Stat Lab 11/30/20 18:12 Received TROPONIN I [CHEM] Stat Lab 11/30/20 18:12 Received TSH [CHEM] Stat Lab 11/30/20 18:12 Received Sodium Chloride 0.9% [Saline Flush] Med 11/30/20 18:08 Active 10 ml FLUSH ASDIRECTED PRN Sodium Chloride 0.9% [Saline Flush] Med 11/30/20 18:08 Active 2.5 ml FLUSH ASDIRECTED PRN Saline Lock Insert [OM.PC] Stat Oth 11/30/20 18:08 Ordered Medication Orders Sodium Chloride (Sodium Chloride 0.9% 10 Ml Syringe) 10 ml FLUSH ASDIRECTED PRN PRN Reason: Keep Vein Open Last Admin: 11/30/20 18:23 Dose: 10 ml Documented by: HOLDEN Sodium Chloride (Sodium Chloride 0.9% 2.5 Ml Syringe) 2.5 ml FLUSH ASDIRECTED PRN PRN Reason: Keep Vein Open Last Admin: 11/30/20 18:23 Dose: 2.5 ml Documented by: HOLDEN Labs: Laboratory Tests 11/30/20 Range/Units 18:12 WBC 11.25 H (4.0-11.0) K/uL RBC 4.77 (4.50-5.90) M/uL Hgb 15.7 (13.0-17.0) g/dL Hct 43.4 (38.0-50.0) % MCV 91.0 (80.0-98.0) fL MCH 32.9 H (27.0-32.0) pg MCHC 36.2 (31.0-37.0) g/dL RDW Std Deviation 43.4 (28.0-62.0) fl RDW Coeff of Yuval 13 (11.0-15.0) % Plt Count 192 (150-400) K/uL MPV 10.10 (7.40-12.00) fL Neut % (Auto) 65.5 (48.0-80.0) % Lymph % (Auto) 25.0 (16.0-40.0) % [place] % (Auto) 7.9 (0.0-15.0) % Eos % (Auto) 1.2 (0.0-7.0) % Baso % (Auto) 0.4 (0.0-1.5) % Neut # (Auto) 7.4 H (1.4-5.7) K/uL Lymph # (Auto) 2.8 H (0.6-2.4) K/uL [place] # (Auto) 0.9 H (0.0-0.8) K/uL Eos # (Auto) 0.1 (0.0-0.7) K/uL Baso # (Auto) 0.0 (0.0-0.1) K/uL Nucleated RBC % 0.0 /100WBC Nucleated RBCs # 0 K/uL Meds: Medications Generic Name Dose Route Start Last Admin Trade Name Freq PRN Reason Stop Dose Admin Sodium Chloride 10 ml 11/30/20 18:08 11/30/20 18:23 Sodium Chloride 0.9% 10 Ml Syringe FLUSH 10 ml ASDIRECTED PRN Administration Keep Vein Open Sodium Chloride 2.5 ml 11/30/20 18:08 11/30/20 18:23 Sodium Chloride 0.9% 2.5 Ml Syringe FLUSH 2.5 ml ASDIRECTED PRN Administration Keep Vein Open - Re-Assessments/Exams Free Text/Narrative Re-Assessment/Exam: 11/30/20 18:11 We will get labs including troponin. Patient has good follow-up with cardiology next week. Low suspicion of serious cardiopulmonary pathology. Suspect likely underlying psychiatric disorder. Spoke with patient's about this and necessity for psychiatry follow-up. 11/30/20 18:43 Patient eloped prior to labs being resulted Departure - Departure Time of Disposition: 18:43 Disposition: Home, Self-Care 01 Condition: Good Clinical Impression: Chest pain Qualifiers: Chest pain type: unspecified Qualified Code(s): R07.9 - Chest pain, unspecified - Discharge Information Instructions: Nonspecific Chest Pain, Adult Referrals: Arnold Gale, CUSTOMER RETENTION SPECIALIST [Primary Care Provider] - Additional Instructions: The following information is given to patients seen in the emergency department who are being discharged to home. This information is to outline your options for follow-up care. We provide all patients seen in our emergency department with a follow-up referral. The need for follow-up, as well as the timing and circumstances, are variable depending upon the specifics of your emergency department visit. If you don't have a primary care physician on staff, we will provide you with a referral. We always advise you to contact your personal physician following an emergency department visit to inform them of the circumstance of the visit and for follow-up with them and/or the need for any referrals to a consulting speci alist. The emergency department will also refer you to a specialist when appropriate. This referral assures that you have the opportunity for follow-up care with a specialist. All of these measure are taken in an effort to provide you with optimal care, which includes your follow-up. Under all circumstances we always encourage you to contact your private physician who remains a resource for coordinating your care. When calling for follow-up care, please make the office aware that this follow-up is from your recent emergency room visit. If for any reason you are refused follow-up, please contact the [facility] Emergency Department at and asked to speak to the emergency department charge nurse. Please follow up with your primary care physician. If you do not have a primary care physician, see below: [facility] [address], [place] [address] [facility] [address] [place] [address] [facility] [address] [place] [address] Sepsis Event Note (ED) - Focused Exam Vital Signs: Vital Signs Temp Pulse Resp BP Pulse Ox 11/30/20 17:57 98 F 78 14 128/82 98 - My Orders Last 24 Hours: My Active Orders 11/30/20 18:08 Sodium Chloride 0.9% [Saline Flush] 10 ml FLUSH ASDIRECTED PRN Sodium Chloride 0.9% [Saline Flush] 2.5 ml FLUSH ASDIRECTED PRN Saline Lock Insert [OM.PC] Stat 11/30/20 18:09 EKG Documentation Completion [RC] STAT 11/30/20 18:12 COMPREHENSIVE METABOLIC PN,CMP [CHEM] Stat TROPONIN I [CHEM] Stat TSH [CHEM] Stat - Assessment/Plan Last 24 Hours: My Active Orders 11/30/20 18:08 Sodium Chloride 0.9% [Saline Flush] 10 ml FLUSH ASDIRECTED PRN Sodium Chloride 0.9% [Saline Flush] 2.5 ml FLUSH ASDIRECTED PRN Saline Lock Insert [OM.PC] Stat 11/30/20 18:09 EKG Documentation Completion [RC] STAT 11/30/20 18:12 COMPREHENSIVE METABOLIC PN,CMP [CHEM] Stat TROPONIN I [CHEM] Stat TSH [CHEM] Stat
[2020-11-30] MEDS ORDERED: Sodium Chloride 0.9% 2.5 ML Syringe FLUSH PRN (18:08)
[2020-11-30] MEDS ORDERED: Sodium Chloride 0.9% 10 ML Syringe FLUSH PRN (18:08)
--- NOTE | 2020-11-30 18:39 | CR ---
For Patients: As a result of the Century Cures Act, medical imaging exams and procedure reports are released immediately into your electronic medical record. You may view this report before your referring provider. If you have questions, please contact your health care provider. Indication: Chest pain Technique: Chest 1 view Comparison: November 29, 2020 Findings/Impression: Low lung volumes accentuate cardiac size. Normal pulmonary vasculature. No focal consolidation, effusion, or pneumothorax. No acute osseous abnormality. Dictated by Yoli Harrison MD @ 11/30/2020 6:36:[address] Yoli Harrison @ Nov 30 2020 6:36PM
[2020-11-30 19:05] LABS: BLOOD UREA NITROGEN,BUN 14 mg/dL (7.0-18.0); CARBON DIOXIDE,CO2 25.2 mmol/L (21.0-32.0); CHLORIDE,CL 104 mmol/L (98-107); GLUCOSE RANDOM 101 mg/dL (74-106); POTASSIUM,K 3.7 mmol/L (3.5-5.1); SODIUM,NA 141 mmol/L (136-148)
== END 2020-11-30 18:44 | disposition home or self-care (01) ==
LOC: MW.ED 17:43
DX: R07.9 Chest pain, unspecified (principal); E66.9 Obesity, unspecified; Z68.37 Body mass index [BMI] 37.0-37.9, adult; Z79.82 Long term (current) use of aspirin; Z79.899 Other long term (current) drug therapy
CPT/HCPCS: 36415; 71045; 71045-26; 80053; 84443; 84484; 85025; 93005; 99285-25

== ENCOUNTER 2020-12-01 20:17 | Emergency (ER) | payer OTHER ==
--- NOTE | 2020-12-01 20:37 | EDM.PDOC ---
ED HPI GENERAL MEDICAL PROBLEM - General Chief Complaint: Chest Pain Stated Complaint: CHEST PAIN Time Seen by Provider: 12/01/20 20:32 Source of Information: Reports: Patient History Limitations: Reports: No Limitations - History of Present Illness INITIAL COMMENTS - FREE TEXT/NARRATIVE: Patient is a 45-year-old male who was brought in today for chest pain. Patient's been seen here multiple times for similar pain. Patient states the pain to the left side at times sharp and does radiate to his back but denies any current pain. Patient denies any numbness the pain better or worse. Patient denies any nausea or vomiting shortness of breath. Patient previous had a Holter monitor on and scheduled to have a stress test and MRI on Friday at [place]. Left Upper Chest Pain Score (Numeric/FACES): 8 - Related Data Allergies Allergy/AdvReac Type Severity Reaction Status Date / Time No Known Allergies Allergy Verified 12/01/20 20:30 Home Meds: Home Meds Aspirin 1 dose PO DAILY 10/09/20 [History] Propranolol [Inderal] 10 mg PO BID PRN 10/09/20 [History] buPROPion [Wellbutrin] 150 mg PO BEDTIME 10/09/20 [History] ALPRAZolam [Xanax] 1 mg PO TID PRN #15 tablet 10/31/20 [Rx] Past Medical History - Past Health History Medical/Surgical History: Denies Medical/Surgical History HEENT History: Reports: None Cardiovascular History: Reports: None Other Cardiovascular History: Patient states "i have a history of SVT" Respiratory History: Reports: Sleep Apnea Other Respiratory History: allergy induced asthma as a teenager, uses CPAP Gastrointestinal History: Reports: GERD Other Gastrointestinal History: intermittent epigastric pain, h/o gastric ulcer, ultrasound 12/30 - fatty liver infiltration Genitourinary History: Reports: None Musculoskeletal History: Reports: Arthritis Other Musculoskeletal History: intermittent sciatic nerve pain Neurological History: Reports: None Psychiatric History: Reports: Anxiety, Depression, Panic Attack, PTSD Endocrine/Metabolic History: Reports: Obesity/BMI 30+ Hematologic History: Reports: None Immunologic History: Reports: None Oncologic (Cancer) History: Reports: None Dermatologic History: Reports: None - Infectious Disease History Infectious Disease History: Reports: Chicken Pox - Past Surgical History Head Surgeries/Procedures: Reports: None HEENT Surgical History: Reports: None Cardiovascular Surgical History: Reports: None Respiratory Surgical History: Reports: None GI Surgical History: Reports: EGD Male Surgical History: Reports: None Endocrine Surgical History: Reports: None Neurological Surgical History: Reports: None Musculoskeletal Surgical History: Reports: None Oncologic Surgical History: Reports: None Dermatological Surgical History: Reports: None Social & Family History - Family History Family Medical History: No Pertinent Family History - Caffeine Use Caffeine Use: Reports: None ED ROS GENERAL - Review of Systems Review Of Systems: See Below Constitutional: Reports: No Symptoms HEENT: Reports: No Symptoms Respiratory: Reports: No Symptoms Cardiovascular: Reports: Chest Pain Endocrine: Reports: No Symptoms GI/Abdominal: Reports: No Symptoms : Reports: No Symptoms Musculoskeletal: Reports: No Symptoms Skin: Reports: No Symptoms Neurological: Reports: No Symptoms Psychiatric: Reports: No Symptoms Hematologic/Lymphatic: Reports: No Symptoms Immunologic: Reports: No Symptoms ED EXAM, GENERAL - Physical Exam Exam: See Below Exam Limited By: No Limitations General Appearance: Alert, WD/WN, No Apparent Distress Respiratory/Chest: No Respiratory Distress, Lungs Clear, Normal Breath Sounds Cardiovascular: Normal Peripheral Pulses, Regular Rate, Rhythm GI/Abdominal: Normal Bowel Sounds, Soft, Non-Tender Back Exam: Normal Inspection, Full Range of Motion Extremities: Normal Inspection, Normal Range of Motion Neurological: Alert, Oriented, CN II-XII Intact, Normal Cognition, Normal Gait #1 Interpretation EKG Date: 12/01/20 Time: 20:18 Rhythm: NSR Rate (Beats/Min): 80 ST-T: Normal Course - Vital Signs Last Recorded V/S: Last Vital Signs Temp 97.6 F 12/01/20 20:26 Pulse 80 12/01/20 20:26 Resp 18 12/01/20 20:26 BP 147/87 H 12/01/20 20:26 Pulse Ox 97 12/01/20 20:26 - Orders/Labs/Meds Orders: Active Orders 24 hr Category Date Time Status EKG Documentation Completion [RC] STAT Care 12/01/20 20:22 Active Labs: Laboratory Tests 12/01/20 12/01/20 Range/Units 20:31 20:31 WBC 8.80 (4.0-11.0) K/uL RBC 4.80 (4.50-5.90) M/uL Hgb 15.9 (13.0-17.0) g/dL Hct 44.5 (38.0-50.0) % MCV 92.7 (80.0-98.0) fL MCH 33.1 H (27.0-32.0) pg MCHC 35.7 (31.0-37.0) g/dL RDW Std Deviation 44.5 (28.0-62.0) fl RDW Coeff of Yuval 13 (11.0-15.0) % Plt Count 203 (150-400) K/uL MPV 10.10 (7.40-12.00) fL Neut % (Auto) 59.9 (48.0-80.0) % Lymph % (Auto) 29.4 (16.0-40.0) % [place] % (Auto) 8.2 (0.0-15.0) % Eos % (Auto) 2.0 (0.0-7.0) % Baso % (Auto) 0.5 (0.0-1.5) % Neut # (Auto) 5.3 (1.4-5.7) K/uL Lymph # (Auto) 2.6 H (0.6-2.4) K/uL [place] # (Auto) 0.7 (0.0-0.8) K/uL Eos # (Auto) 0.2 (0.0-0.7) K/uL Baso # (Auto) 0.0 (0.0-0.1) K/uL Nucleated RBC % 0.0 /100WBC Nucleated RBCs # 0 K/uL Sodium 141 (136-148) mmol/L Potassium 4.0 (3.5-5.1) mmol/L Chloride 106 (98-107) mmol/L Carbon Dioxide 27.6 (21.0-32.0) mmol/L BUN 20 H (7.0-18.0) mg/dL Creatinine 1.3 (0.8-1.3) mg/dL Est Cr Clr Drug Dosing 64.00 mL/min Estimated GFR (MDRD) 59.2 ml/min Glucose 105 (74-106) mg/dL Calcium 8.8 (8.5-10.1) mg/dL Creatine Kinase 904 H (26-308) U/L Troponin I < 0.050 (0.000-0.056) ng/mL - Re-Assessments/Exams Free Text/Narrative Re-Assessment/Exam: 12/01/20 21:45 She has an MRI of his head and had of his heart on Friday. But he still has a stress test scheduled with [facility] on Friday. Again patient tropes were negative for the past 3 days's EKG remains unchanged patient stable discharge home. Departure - Departure Time of Disposition: 21:46 Disposition: Home, Self-Care 01 Condition: Good Clinical Impression: Chest pain Qualifiers: Chest pain type: unspecified Qualified Code(s): R07.9 - Chest pain, unspecified Instructions: Angina, [id number] Referrals: PCP,None [Primary Care Provider] - Forms: ED Department Discharge Additional Instructions: The following information is given to patients seen in the emergency department who are being discharged to home. This information is to outline your options for follow-up care. We provide all patients seen in our emergency department with a follow-up referral. The need for follow-up, as well as the timing and circumstances, are variable depending upon the specifics of your emergency department visit. If you don't have a primary care physician on staff, we will provide you with a referral. We always advise you to contact your personal physician following an emergency department visit to inform them of the circumstance of the visit and for follow-up with them and/or the need for any referrals to a consulting specialist. The emergency department will also refer you to a specialist when appropriate. This referral assures that you have the opportunity for follow-up care with a specialist. All of these measure are taken in an effort to provide you with optimal care, which includes your follow-up. Under all circumstances we always encourage you to contact your private physician who remains a resource for coordinating your care. When calling for follow-up care, please make the office aware that this follow-up is from your recent emergency room visit. If for any reason you are refused follow-up, please contact the [facility] Emergency Department at and asked to speak to the emergency department charge nurse. Please follow up with your primary care physician. If you do not have a primary care physician, see below: [facility] [address] [place] [id number] [address] [place] [address] You were seen today for chest pain. We did labs EKG which remained within normal limits from your previous visit. You are stable for discharge and recomm end you continue with your appointment next week with cardiology at [place]. Having a concerning signs or symptoms please return to the ED. Sepsis Event Note (ED) - Evaluation Sepsis Screening Result: No Definite Risk - Focused Exam Vital Signs: Vital Signs Temp Pulse Resp BP Pulse Ox 12/01/20 20:26 97.6 F 80 18 147/87 H 97 - Assessment/Plan Plan: Patient is a 45-year-old male presents today for chest pain rating to his left side. Patient has been here multiple times for the chest pain was seen here yesterday and the day before as well. With this we were able to draw 1 set of troponins as patient within in 72 hours negative for troponins. Patient also has a heart score of 3.
[2020-12-01 21:00] LABS: BLOOD UREA NITROGEN,BUN 20 mg/dL (7.0-18.0); CARBON DIOXIDE,CO2 27.6 mmol/L (21.0-32.0); CHLORIDE,CL 106 mmol/L (98-107); GLUCOSE RANDOM 105 mg/dL (74-106); SODIUM,NA 141 mmol/L (136-148)
--- NOTE | 2020-12-01 21:20 | CR ---
INDICATION: Left upper chest pain TECHNIQUE: Portable upright AP view of the chest COMPARISON: AP chest radiograph 11/30/2020 FINDINGS: The lungs are clear. There is no sizable pleural effusion or pneumothorax. The cardiomediastinal silhouette is normal. The visualized osseous structures are unremarkable. IMPRESSION: No acute intrathoracic process. Dictated by Christian Watson MD @ 12/01/2020 9:18:[address] Christian Watson @ Dec 01 2020 9:18PM
== END 2020-12-01 21:49 | disposition home or self-care (01) ==
LOC: MW.ED 20:17
DX: R07.9 Chest pain, unspecified (principal); E66.9 Obesity, unspecified; Z68.30 Body mass index [BMI] 30.0-30.9, adult
CPT/HCPCS: 36415; 71045; 71045-26; 80048; 82550; 84484; 85025; 93005; 93010; 99283; 99285-25